=== PATIENT | male | born 1985 | race Caucasian/White ===

== ENCOUNTER → 2019-07-11 09:57 | Outpatient (CLI) | payer BC, SELFPAY ==
[2019-07-12 13:11] LABS: COVID19 Sendout NOT DETECTED (Not Detect)
== END ==
PROVIDERS: Visit Provider Registered Nurse
DX: Z11.59 Encounter for screening for other viral diseases (principal)
CPT/HCPCS: 87635

== ENCOUNTER → 2019-09-19 11:08 | Outpatient (CLI) | payer BC, SELFPAY ==
[2019-09-20 07:57] LABS: COVID19 Sendout Not Detected (Not Detect)
== END ==
PROVIDERS: Visit Provider Physician Assistant
DX: Z11.59 Encounter for screening for other viral diseases (principal)
CPT/HCPCS: 87635

== ENCOUNTER 2020-07-04 09:00 | Outpatient (RCR) | payer OTHER, SELFPAY ==
--- NOTE | 2020-03-19 14:29 | PT.OIE ---
Current Diagnoses Pain in right knee (03/19/20) Stiffness of right knee, not elsewhere classified (03/19/20) Muscle weakness (generalized) (03/19/20) Other abnormalities of gait and mobility (03/19/20) Other tear of lateral meniscus, current injury, right knee, initial encounter (03/19/20) Sprain of anterior cruciate ligament of right knee, initial encounter (03/19/20) Visit Care Team Role Provider Type Chema Cash MD Primary Care Provider Physician Specialty: [facility] Address: [address] [place] [address], [id number] Email: [email or web address] Charli Gonzalez MD Attending Provider Non-Staff Referring Provider Specialty: Orthopedic Surgery Address: [address] [place] [address], [facility] Email: Physical Therapy Initial Evaluation PT-OP-A Visit Information Start: 03/19/20 13:53 Freq: Status: Active Protocol: Document 03/19/20 10:30 DCW (Rec: 03/19/20 14:07 DCW [id number]) Out-Patient Physical Therapy Visit Information Visit Information Visit Type Initial Evaluation Visit Start Time 10:30 Visit Stop Time 11:15 Total Visit Minutes 45 Visit Number 1 Number of GLASS 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 In the process, his left foot got caught in yaneli, resulting in him falling and landing on his right leg, which caused a right ACL and lateral meniscus tear. 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 Pt had surgical repair on 03/12/20 in [place], where he works , and the on 03/17/20, flew to [place], where he lives with his and four children. Post-op, pt has been performing ankle pumps, SLR, and glute/quad sets. Pt also is using bilateral axillary crutches and a brace, which is supposed to lock into extension during weight- bearing, although pt admits he is not 100% compliant with locking his brace. Pt notes his pain is overall well controlled, takes one pain pill in the AM, and then some edibles at night to help him sleep. Treatment Goals Patient/Caregiver Goals Pt's goals are to be brace- free in one month, regain quad function, and overall return to his normal functional level . PT-OP-C Subjective Start: 03/19/20 13:53 Freq: Status: Active Protocol: Document 03/19/20 10:30 DCW (Rec: 03/19/20 14:29 DC [id number]) OP-PT Subjective Patient Comments Patient Comments I'm thinking about ditching the crutches in the next day or two, I feel like they make me more likely to trip or get hung up on something. Patient Reported Progress Improving Patient Questionnaires Lower Extremity Functional Scale LEFS Score 16.25% OP-PT Pain Assessment Pain Assessment Grid Paper Pain Assessment Grid Completed Yes Location Left Knee Intensity 7 Scale Used Numeric (0 - 10) PT-OP-J Posture/Palpation/Skin Start: 03/19/20 14:08 Freq: Status: Active Protocol: Document 03/19/20 10:30 DCW (Rec: 03/19/20 14:29 DCW [id number]) Skin Assessment Circumference Measurement 3 Location 10 cm inferior to right knee joint line Measurement (Centimeters) 38.5 Comments 10 cm inferior to left knee joint line: 37.8 cm 2 Location 10 cm superior to right knee joint line Measurement (Centimeters) 44.0 Comments 10 cm superior to left knee joint line: 42.8 cm 1 Location Right knee joint line Measurement (Centimeters) 40.8 Comments Left knee joint line: 35.0 cm PT-OP-K Range of Motion Start: 03/19/20 13:53 Freq: Status: Active Protocol: Document 03/19/20 10:30 DCW (Rec: 03/19/20 14:29 DCW [id number]) Knee Goniometric Range of Motion Knee Right Patient Position Supine Flexion Active (degrees) 92 Extension Active (degrees) 0 Comments Extension lag during SLR: 8? PT-OP-M Strength Start: 03/19/20 13:53 Freq: Status: Active Protocol: Document 03/19/20 10:30 DCW (Rec: 03/19/20 14:29 DCW [id number]) Knee Strength Knee Manual Muscle Testing Right Flexion (S2) 3 Fair Extension (L3) 3 Fair Comments Pt able to lift leg againt gravity both with SLR and performing HS curl in standing , knee flexion and extension at least 3/5 PT-OP-T Assessment and Plan Start: 03/19/20 13:53 Freq: Status: Active Protocol: Document 03/19/20 10:30 DCW (Rec: 03/19/20 14:29 DCW [id number]) Physical Therapy Assessment Rehab Potential Rehabilitation Potential Excellent Evaluation Complexity Number of Personal Factors/Comorbidities 1-2 Number of Body Systems Impaired 1-2 Clinical Presentation at Evaluation Stable Impairments Impairments Activity Tolerance,Balance, Edema,Functional Activities, Functional Mobility,Gait,Pain, ROM,Soft Tissue Mobility, Strength Goals Five Impairment Pt demonstrating post-op R quad and hamstring strength of 3/5 Correction Goal (LTG) Pt to demonstrate 4/5 quad and hamstring strength in order to 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 LTG Duration 06/16/20 Four Impairment Pt right knee ROM limited to 0 -90? Correction Goal (LTG) Pt to demonstrate right knee ROM 0-130? pain-free in order to return to prior level of function LTG Duration 05/17/20 Three Impairment Pt amb step-through gait wearing locked ext brace /c B axillary crutches Correction Goal (LTG) Pt to ambulate unassisted with no brace using a step-through gait pattern with no antalgia LTG Duration 05/17/20 Two Impairment Pt presents with circumfrential measurements L> R at joint line by 5.8 cm Correction Goal (LTG) Circumfrential measurements at knee joint line L=R LTG Duration 05/17/20 One Impairment Pt does not have an appropriate home exercise program Short Term Goal (STG) Pt to be independent and compliant with an appropriate HEP STG Duration 04/16/20 Assessment Summary Assessment Pt presents to skilled therapy one week s/p right ACL reconstruction using patella graft and minor lateral meniscus repair. Pt has so far been doing very well, ambulates with bilateral axillary crutches and his brace locked in extension most of the time, has been active with his current HEP. Pt current ROM is 0-90?, strength is at least 3/5, pt able to move against gravity. 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 Pt has been through ACL repair recovery approx 4 years ago, and demonstrates he is knowledgeable with rehab process and expectations. Pain -levels well controlled at this time. Pt should benefit from skilled therapy, beginning with focus on gentle strengthening, increasing ROM , gait training, and edema control. Physical Therapy Plan Frequency and Duration Frequency of Treatment 2x/Week Duration of Treatment 10 weeks Plan of Care Start Date 03/19/20 Plan of Care End Date 05/28/20 Therapeutic Interventions Therapeutic Interventions Balance Training,Gait Training ,Home Exercise Program,Joint Mobilizations,Manual Therapy, Neuromuscular Re-education, Patient/Caregiver Education, Self-Care/Home Management,Soft Tissue Mobilization, Therapeutic Activities, Therapeutic Exercises Modalities Cold Pack/Ice Massage,Electric Stimulation,Hot Packs, Ultrasound Next Visit Focus/Plan Next Note Type Treatment Note Next Visit Plan ROM, edema control, gentle strengthening, gait training
--- NOTE | 2020-03-19 14:29 | PT.OPPOC ---
Physical, Occupational & Speech Therapy At [facility] Current Diagnoses Pain in right knee (03/19/20) Stiffness of right knee, not elsewhere classified (03/19/20) Muscle weakness (generalized) (03/19/20) Other abnormalities of gait and mobility (03/19/20) Other tear of lateral meniscus, current injury, right knee, initial encounter (03/19/20) Sprain of anterior cruciate ligament of right knee, initial encounter (03/19/20) Visit Care Team Role Provider Type Chema Cash MD Primary Care Provider Physician Specialty: [facility] Address: [address] [place] [address] [place], [address] Email: [email or web address] Charli Gonzalez MD Attending Provider Non-Staff Referring Provider Specialty: Orthopedic Surgery Address: [address] [place] [address], [facility] Email: Plan Of Care PT-OP-T Assessment and Plan Start: 03/19/20 13:53 Freq: Status: Active Protocol: Document 03/19/20 10:30 DCW (Rec: 03/19/20 14:29 DCW [id number]) Physical Therapy Assessment Rehab Potential Rehabilitation Potential Excellent Evaluation Complexity Number of Personal Factors/Comorbidities 1-2 Number of Body Systems Impaired 1-2 Clinical Presentation at Evaluation Stable Impairments Impairments Activity Tolerance,Balance, Edema,Functional Activities, Functional Mobility,Gait,Pain, ROM,Soft Tissue Mobility, Strength Goals Five Impairment Pt demonstrating post-op R quad and hamstring strength of 3/5 [facility] Goal (LTG) Pt to demonstrate 4/5 quad and hamstring strength in order to 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 LTG Duration 06/16/20 Four Impairment Pt right knee ROM limited to 0 -90? [facility] Goal (LTG) Pt to demonstrate right knee ROM 0-130? pain-free in order to return to prior level of function LTG Duration 05/17/20 Three Impairment Pt amb step-through gait wearing locked ext brace /c B axillary crutches [facility] Goal (LTG) Pt to ambulate unassisted with no brace using a step-through gait pattern with no antalgia LTG Duration 05/17/20 Two Impairment Pt presents with circumfrential measurements L> R at joint line by 5.8 cm [facility] Goal (LTG) Circumfrential measurements at knee joint line L=R LTG Duration 05/17/20 One Impairment Pt does not have an appropriate home exercise program Short Term Goal (STG) Pt to be independent and compliant with an appropriate HEP STG Duration 04/16/20 Assessment Summary Assessment Pt presents to skilled therapy one week s/p right ACL reconstruction using patella graft and minor lateral meniscus repair. Pt has so far been doing very well, ambulates with bilateral axillary crutches and his brace locked in extension most of the time, has been active with his current HEP. Pt current ROM is 0-90?, strength is at least 3/5, pt able to move against gravity. 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 Pt has been through ACL repair recovery approx 4 years ago, and demonstrates he is knowledgeable with rehab process and expectations. Pain -levels well controlled at this time. Pt should benefit from skilled therapy, beginning with focus on gentle strengthening, increasing ROM , gait training, and edema control. Physical Therapy Plan Frequency and Duration Frequency of Treatment 2x/Week Duration of Treatment 10 weeks Plan of Care Start Date 03/19/20 Plan of Care End Date 05/28/20 Therapeutic Interventions Therapeutic Interventions Balance Training,Gait Training ,Home Exercise Program,Joint Mobilizations,Manual Therapy, Neuromuscular Re-education, Patient/Caregiver Education, Self-Care/Home Management,Soft Tissue Mobilization, Therapeutic Activities, Therapeutic Exercises Modalities Cold Pack/Ice Massage,Electric Stimulation,Hot Packs, Ultrasound Next Visit Focus/Plan Next Note Type Treatment Note Next Visit Plan ROM, edema control, gentle strengthening, gait training Plan of Care Dates Plan of Care Start Date 03/19/20 Plan of Care End Date 05/28/20 Electronically Signed by: Flakito Colon, PT 03/19/20 2086 Please Sign and Return: I have reviewed this Plan of Care and certify that the skilled therapy services above are required to meet the patient?s needs. Physician Signature Date Printed Name and Credentials Clinical Instructor Signature Printed Name and Credentials
--- NOTE | 2020-03-21 10:32 | PT.OTN ---
Current Diagnoses Pain in right knee (03/21/20) Stiffness of right knee, not elsewhere classified (03/21/20) Muscle weakness (generalized) (03/21/20) Other abnormalities of gait and mobility (03/21/20) Other tear of lateral meniscus, current injury, right knee, initial encounter (03/21/20) Sprain of anterior cruciate ligament of right knee, initial encounter (03/21/20) Physical Therapy Treatment Note PT-OP-A Visit Information Start: 03/19/20 13:53 Freq: Status: Active Protocol: Document 03/21/20 09:50 DCW (Rec: 03/21/20 10:32 DCW [id number]) Out-Patient Physical Therapy Visit Information Visit Information Visit Type Treatment Note Visit Start Time 09:50 Visit Stop Time 10:30 Total Visit Minutes 40 Visit Number 2 Number of PARK WORKER Visits 0 Evaluation Information Evaluation Date 03/19/20 PT-OP-B Current Condition Start: 03/19/20 13:53 Freq: Status: Active Protocol: Document 03/19/20 10:30 DCW (Rec: 03/19/20 14:07 DCW [id number]) Current Condition History of Current Condition Onset Date 03/12/20 Current Complaints Knee pain, stiffness, weakness s/p R ACL, lateral meniscus repair History of Current Condition Pt is a 34 year old male presenting one week s/p right ACL reconstruction (patella graft) and meniscus repair. 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 In the process, his left foot got caught in yaneli, resulting in him falling and landing on his right leg, which caused a right ACL and lateral meniscus tear. 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 Pt had surgical repair on 03/12/20 in [place], where he works , and the on 03/17/20, flew to [place], where he lives with his and four children. Post-op, pt has been performing ankle pumps, SLR, and glute/quad sets. Pt also is using bilateral axillary crutches and a brace, which is supposed to lock into extension during weight- bearing, although pt admits he is not 100% compliant with locking his brace. Pt notes his pain is overall well controlled, takes one pain pill in the AM, and then some edibles at night to help him sleep. Treatment Goals Patient/Caregiver Goals Pt's goals are to be brace- free in one month, regain quad function, and overall return to his normal functional level . PT-OP-C Subjective Start: 03/19/20 13:53 Freq: Status: Active Protocol: Document 03/21/20 09:50 DCW (Rec: 03/21/20 10:32 DCW [id number]) OP-PT Subjective Patient Comments Patient Comments I've just really overdone it. I've tried to really hit the ground running, try to keep up with my kids, and it's just really painful. I'm having a lot of pain back in my hamstring. I used to be able to get it straight, but I don' t have that anymore. PT-OP-J Posture/Palpation/Skin Start: 03/19/20 14:08 Freq: Status: Active Protocol: Document 03/19/20 10:30 DCW (Rec: 03/19/20 14:29 DCW [id number]) Skin Assessment Circumference Measurement 3 Location 10 cm inferior to right knee joint line Measurement (Centimeters) 38.5 Comments 10 cm inferior to left knee joint line: 37.8 cm 2 Location 10 cm superior to right knee joint line Measurement (Centimeters) 44.0 Comments 10 cm superior to left knee joint line: 42.8 cm 1 Location Right knee joint line Measurement (Centimeters) 40.8 Comments Left knee joint line: 35.0 cm PT-OP-K Range of Motion Start: 03/19/20 13:53 Freq: Status: Active Protocol: Document 03/19/20 10:30 DCW (Rec: 03/19/20 14:29 DCW [id number]) Knee Goniometric Range of Motion Knee Right Patient Position Supine Flexion Active (degrees) 92 Extension Active (degrees) 0 Comments Extension lag during SLR: 8? PT-OP-M Strength Start: 03/19/20 13:53 Freq: Status: Active Protocol: Document 03/19/20 10:30 DCW (Rec: 03/19/20 14:29 DCW [id number]) Knee Strength Knee Manual Muscle Testing Right Flexion (S2) 3 Fair Extension (L3) 3 Fair Comments Pt able to lift leg againt gravity both with SLR and performing HS curl in standing , knee flexion and extension at least 3/5 PT-OP-Q Treatments Start: 03/19/20 13:53 Freq: Status: Active Protocol: Document 03/21/20 09:50 DCW (Rec: 03/21/20 10:32 DCW [id number]) Cardio Equipment Recumbent Bicycle Duration (Minutes) 6 Resistance 0 Other no full rotations, just ROM Gym Equipment Therapeutic Ball 1 Exercise Details Hip/knee flexion Ball Size/Color Blue - 45 cm Body Position Supine Therapeutic Exercises Supine Exercises 5 Supine Exercise Name Hip Abduction - Windshield wipers Side right 4 Supine Exercise Name Heelslides Side right 3 Supine Exercise Name SAQ Side right 2 Supine Exercise Name Piriformis stretch Side right Comments Pressure on thigh to eliminate torsional force on knee 1 Supine Exercise Name Hamstring stretch Side right Standing Exercises 1 Standing Exercise Name TKE Side right Resistance Lv 2 Equipment Used T-band Manual Therapy Treatment Soft Tissue Mobilization 3 Body Location Proximal Gastroc Mobilization Type Strumming,Sustained Pressure Intensity/Depth Superficial Body Position Hooklying 2 Body Location Piriformis Mobilization Type Strumming,Sustained Pressure Intensity/Depth Moderate Body Position Supine 1 Body Location ITB Mobilization Type Strumming,Sustained Pressure Intensity/Depth Moderate Body Position Supine PT-OP-T Assessment and Plan Start: 03/19/20 13:53 Freq: Status: Active Protocol: Document 03/21/20 09:50 DCW (Rec: 03/21/20 10:32 DCW [id number]) Physical Therapy Assessment Impairments Impairments Activity Tolerance,Balance, Edema,Functional Activities, Functional Mobility,Gait,Pain, ROM,Soft Tissue Mobility, Strength Goals Five Impairment Pt demonstrating post-op R quad and hamstring strength of 3/5 Valuation Consultant Goal (LTG) Pt to demonstrate 4/5 quad and hamstring strength in order to 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 LTG Duration 06/16/20 Four Impairment Pt right knee ROM limited to 0 -90? Residential Goal (LTG) Pt to demonstrate right knee ROM 0-130? pain-free in order to return to prior level of function LTG Duration 05/17/20 Three Impairment Pt amb step-through gait wearing locked ext brace /c B axillary crutches Valuation Consultant Goal (LTG) Pt to ambulate unassisted with no brace using a step-through gait pattern with no antalgia LTG Duration 05/17/20 Two Impairment Pt presents with circumfrential measurements L> R at joint line by 5.8 cm Residential Goal (LTG) Circumfrential measurements at knee joint line L=R LTG Duration 05/17/20 One Impairment Pt does not have an appropriate home exercise program Short Term Goal (STG) Pt to be independent and compliant with an appropriate HEP STG Duration 04/16/20 Assessment Summary Assessment Focused on fairly easy, straight-forward exercises and STM today due to pts significant increase in pain and discomfort since his eval two days ago. Pt felt much better following today's session, knee extension returned to 0 degrees. Physical Therapy Plan Frequency and Duration Frequency of Treatment 2x/Week Duration of Treatment 10 weeks Plan of Care Start Date 03/19/20 Plan of Care End Date 05/28/20 Therapeutic Interventions Therapeutic Interventions Balance Training,Gait Training ,Home Exercise Program,Joint Mobilizations,Manual Therapy, Neuromuscular Re-education, Patient/Caregiver Education, Self-Care/Home Management,Soft Tissue Mobilization, Therapeutic Activities, Therapeutic Exercises Modalities Cold Pack/Ice Massage,Electric Stimulation,Hot Packs, Ultrasound Next Visit Focus/Plan Next Note Type Treatment Note Next Visit Plan ROM, edema control, gentle strengthening, gait training
--- NOTE | 2020-03-26 11:10 | PT.OTN ---
Current Diagnoses Pain in right knee (03/26/20) Stiffness of right knee, not elsewhere classified (03/26/20) Muscle weakness (generalized) (03/26/20) Other abnormalities of gait and mobility (03/26/20) Other tear of lateral meniscus, current injury, right knee, initial encounter (03/26/20) Sprain of anterior cruciate ligament of right knee, initial encounter (03/26/20) Physical Therapy Treatment Note PT-OP-A Visit Information Start: 03/19/20 13:53 Freq: Status: Active Protocol: Document 03/26/20 10:30 DCW (Rec: 03/26/20 11:10 DCW [id number]) Out-Patient Physical Therapy Visit Information Visit Information Visit Type Treatment Note Visit Start Time 10:30 Visit Stop Time 11:10 Total Visit Minutes 40 Visit Number 3 Number of CROWN BLOCKER Visits 0 Evaluation Information Evaluation Date 03/19/20 PT-OP-B Current Condition Start: 03/19/20 13:53 Freq: Status: Active Protocol: Document 03/19/20 10:30 DCW (Rec: 03/19/20 14:07 DCW [id number]) Current Condition History of Current Condition Onset Date 03/12/20 Current Complaints Knee pain, stiffness, weakness s/p R ACL, lateral meniscus repair History of Current Condition Pt is a 34 year old male presenting one week s/p right ACL reconstruction (patella graft) and meniscus repair. 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 In the process, his left foot got caught in yaneli, resulting in him falling and landing on his right leg, which caused a right ACL and lateral meniscus tear. 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 Pt had surgical repair on 03/12/20 in [place], where he works , and the on 03/17/20, flew to [place], where he lives with his and four children. Post-op, pt has been performing ankle pumps, SLR, and glute/quad sets. Pt also is using bilateral axillary crutches and a brace, which is supposed to lock into extension during weight- bearing, although pt admits he is not 100% compliant with locking his brace. Pt notes his pain is overall well controlled, takes one pain pill in the AM, and then some edibles at night to help him sleep. Treatment Goals Patient/Caregiver Goals Pt's goals are to be brace- free in one month, regain quad function, and overall return to his normal functional level . PT-OP-C Subjective Start: 03/19/20 13:53 Freq: Status: Active Protocol: Document 03/26/20 10:30 DCW (Rec: 03/26/20 11:10 DCW [id number]) OP-PT Subjective Patient Comments Patient Comments Pt feeling much better today, notes he had a good weekend, has been performing his HEP regularly, and has been doing much better with pain management. PT-OP-J Posture/Palpation/Skin Start: 03/19/20 14:08 Freq: Status: Active Protocol: Document 03/19/20 10:30 DCW (Rec: 03/19/20 14:29 DCW [id number]) Skin Assessment Circumference Measurement 3 Location 10 cm inferior to right knee joint line Measurement (Centimeters) 38.5 Comments 10 cm inferior to left knee joint line: 37.8 cm 2 Location 10 cm superior to right knee joint line Measurement (Centimeters) 44.0 Comments 10 cm superior to left knee joint line: 42.8 cm 1 Location Right knee joint line Measurement (Centimeters) 40.8 Comments Left knee joint line: 35.0 cm PT-OP-K Range of Motion Start: 03/19/20 13:53 Freq: Status: Active Protocol: Document 03/19/20 10:30 DCW (Rec: 03/19/20 14:29 DCW [id number]) Knee Goniometric Range of Motion Knee Right Patient Position Supine Flexion Active (degrees) 92 Extension Active (degrees) 0 Comments Extension lag during SLR: 8? PT-OP-M Strength Start: 03/19/20 13:53 Freq: Status: Active Protocol: Document 03/19/20 10:30 DCW (Rec: 03/19/20 14:29 DCW [id number]) Knee Strength Knee Manual Muscle Testing Right Flexion (S2) 3 Fair Extension (L3) 3 Fair Comments Pt able to lift leg againt gravity both with SLR and performing HS curl in standing , knee flexion and extension at least 3/5 PT-OP-Q Treatments Start: 03/19/20 13:53 Freq: Status: Active Protocol: Document 03/26/20 10:30 DCW (Rec: 03/26/20 11:10 DCW [id number]) Cardio Equipment Recumbent Bicycle Duration (Minutes) 6 Resistance 3 Seat Position 6 Gym Equipment Shuttle Recovery Unilateral Squats Resistance 25# Shuttle Recovery Platform Stable Bilateral Squats Resistance 50# Shuttle Recovery Platform Stable Therapeutic Ball 1 Exercise Details Hip/knee flexion Ball Size/Color Blue - 45 cm Body Position Supine Therapeutic Exercises Standing Exercises 1 Standing Exercise Name TKE Side right Resistance Lv 3 Equipment Used T-band Manual Therapy Treatment Soft Tissue Mobilization 3 Body Location Proximal Gastroc Mobilization Type Strumming,Sustained Pressure Intensity/Depth Superficial Body Position Hooklying 2 Body Location Piriformis Mobilization Type Strumming,Sustained Pressure Intensity/Depth Moderate Body Position Supine 1 Body Location ITB Mobilization Type Strumming,Sustained Pressure Intensity/Depth Moderate Body Position Supine Orthotic/Prosthetic Management and Training Treatment Details of Training Resizing/adjustment of knee brace. 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 LTG Duration 06/16/20 Four Impairment Pt right knee ROM limited to 0 -90? Tool Shaper Set Up Operator Goal (LTG) Pt to demonstrate right knee ROM 0-130? pain-free in order to return to prior level of function LTG Duration 05/17/20 Three Impairment Pt amb step-through gait wearing locked ext brace /c B axillary crutches Shelter Goal (LTG) Pt to ambulate unassisted with no brace using a step-through gait pattern with no antalgia LTG Duration 05/17/20 Two Impairment Pt presents with circumfrential measurements L> R at joint line by 5.8 cm Shelter Goal (LTG) Circumfrential measurements at knee joint line L=R LTG Duration 05/17/20 One Impairment Pt does not have an appropriate home exercise program Short Term Goal (STG) Pt to be independent and compliant with an appropriate HEP STG Duration 04/16/20 Assessment Summary Assessment Pt doing much better today, feeling more confident with walking, minimal to no pain with activity. Pt anxious to return to gym for upper body and core work outs. Worked to adjust brace today, pt noted it had been slipping backward. Physical Therapy Plan Frequency and Duration Frequency of Treatment 2x/Week Duration of Treatment 10 weeks Plan of Care Start Date 03/19/20 Plan of Care End Date 05/28/20 Therapeutic Interventions Therapeutic Interventions Balance Training,Gait Training ,Home Exercise Program,Joint Mobilizations,Manual Therapy, Neuromuscular Re-education, Patient/Caregiver Education, Self-Care/Home Management,Soft Tissue Mobilization, Therapeutic Activities, Therapeutic Exercises Modalities Cold Pack/Ice Massage,Electric Stimulation,Hot Packs, Ultrasound Next Visit Focus/Plan Next Note Type Treatment Note Next Visit Plan ROM, edema control, gentle strengthening, gait training
--- NOTE | 2020-03-28 11:24 | PT.OTN ---
Current Diagnoses Pain in right knee (03/28/20) Stiffness of right knee, not elsewhere classified (03/28/20) Muscle weakness (generalized) (03/28/20) Other abnormalities of gait and mobility (03/28/20) Other tear of lateral meniscus, current injury, right knee, initial encounter (03/28/20) Sprain of anterior cruciate ligament of right knee, initial encounter (03/28/20) Physical Therapy Treatment Note PT-OP-A Visit Information Start: 03/19/20 13:53 Freq: Status: Active Protocol: Document 03/28/20 10:40 DCW (Rec: 03/28/20 11:24 DCW [id number]) Out-Patient Physical Therapy Visit Information Visit Information Visit Type Treatment Note Visit Note 10 min late Visit Start Time 10:40 Visit Stop Time 11:20 Total Visit Minutes 40 Visit Number 4 Number of SATURATION EQUIPMENT OPERATOR Visits 0 Evaluation Information Evaluation Date 03/19/20 PT-OP-B Current Condition Start: 03/19/20 13:53 Freq: Status: Active Protocol: Document 03/19/20 10:30 DCW (Rec: 03/19/20 14:07 DCW [id number]) Current Condition History of Current Condition Onset Date 03/12/20 Current Complaints Knee pain, stiffness, weakness s/p R ACL, lateral meniscus repair History of Current Condition Pt is a 34 year old male presenting one week s/p right ACL reconstruction (patella graft) and meniscus repair. 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 In the process, his left foot got caught in yaneli, resulting in him falling and landing on his right leg, which caused a right ACL and lateral meniscus tear. 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 Pt had surgical repair on 03/12/20 in [place], where he works , and the on 03/17/20, flew to [place], where he lives with his and four children. Post-op, pt has been performing ankle pumps, SLR, and glute/quad sets. Pt also is using bilateral axillary crutches and a brace, which is supposed to lock into extension during weight- bearing, although pt admits he is not 100% compliant with locking his brace. Pt notes his pain is overall well controlled, takes one pain pill in the AM, and then some edibles at night to help him sleep. Treatment Goals Patient/Caregiver Goals Pt's goals are to be brace- free in one month, regain quad function, and overall return to his normal functional level . PT-OP-C Subjective Start: 03/19/20 13:53 Freq: Status: Active Protocol: Document 03/28/20 10:40 DCW (Rec: 03/28/20 11:24 DCW [id number]) OP-PT Subjective Patient Comments Patient Comments Pt reports he is feeling good overall. Got his stitches removed last night, feels that the only thing limiting my movement right now is still the swelling. PT-OP-J Posture/Palpation/Skin Start: 03/19/20 14:08 Freq: Status: Active Protocol: Document 03/19/20 10:30 DCW (Rec: 03/19/20 14:29 DCW [id number]) Skin Assessment Circumference Measurement 3 Location 10 cm inferior to right knee joint line Measurement (Centimeters) 38.5 Comments 10 cm inferior to left knee joint line: 37.8 cm 2 Location 10 cm superior to right knee joint line Measurement (Centimeters) 44.0 Comments 10 cm superior to left knee joint line: 42.8 cm 1 Location Right knee joint line Measurement (Centimeters) 40.8 Comments Left knee joint line: 35.0 cm PT-OP-K Range of Motion Start: 03/19/20 13:53 Freq: Status: Active Protocol: Document 03/19/20 10:30 DCW (Rec: 03/19/20 14:29 DCW [id number]) Knee Goniometric Range of Motion Knee Right Patient Position Supine Flexion Active (degrees) 92 Extension Active (degrees) 0 Comments Extension lag during SLR: 8? PT-OP-M Strength Start: 03/19/20 13:53 Freq: Status: Active Protocol: Document 03/19/20 10:30 DCW (Rec: 03/19/20 14:29 DCW [id number]) Knee Strength Knee Manual Muscle Testing Right Flexion (S2) 3 Fair Extension (L3) 3 Fair Comments Pt able to lift leg againt gravity both with SLR and performing HS curl in standing , knee flexion and extension at least 3/5 PT-OP-Q Treatments Start: 03/19/20 13:53 Freq: Status: Active Protocol: Document 03/28/20 10:40 DCW (Rec: 03/28/20 11:24 DCW [id number]) Cardio Equipment Recumbent Bicycle Duration (Minutes) 6 Resistance 3 Seat Position 6 Gym Equipment Shuttle Recovery Unilateral Squats Resistance 37# Shuttle Recovery Platform Stable Bilateral Squats Resistance 75# Shuttle Recovery Platform Stable Therapeutic Exercises Standing Exercises 2 Standing Exercise Name Step-ups Side right Equipment Used 4 step 1 Standing Exercise Name TKE Side right Resistance Lv 3 Equipment Used T-band Other Exercises 1 Other Exercise Name Resisted side-stepping Resistance Green Manual Therapy Treatment Soft Tissue Mobilization 3 Body Location Proximal Gastroc Mobilization Type Strumming,Sustained Pressure Intensity/Depth Superficial Body Position Hooklying 2 Body Location Piriformis Mobilization Type Strumming,Sustained Pressure Intensity/Depth Moderate Body Position Supine 1 Body Location ITB Mobilization Type Strumming,Sustained Pressure Intensity/Depth Moderate Body Position Supine PT-OP-T Assessment and Plan Start: 03/19/20 13:53 Freq: Status: Active Protocol: Document 03/28/20 10:40 DCW (Rec: 03/28/20 11:24 DCW [id number]) Physical Therapy Assessment Impairments Impairments Activity Tolerance,Balance, Edema,Functional Activities, Functional Mobility,Gait,Pain, ROM,Soft Tissue Mobility, Strength Goals Five Impairment Pt demonstrating post-op R quad and hamstring strength of 3/5 Convict Guard Goal (LTG) Pt to demonstrate 4/5 quad and hamstring strength in order 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 LTG Duration 06/16/20 Four Impairment Pt right knee ROM limited to 0 -90? Alf Goal (LTG) Pt to demonstrate right knee ROM 0-130? pain-free in order to return to prior level of function LTG Duration 05/17/20 Three Impairment Pt amb step-through gait wearing locked ext brace /c B axillary crutches Convict Guard Goal (LTG) Pt to ambulate unassisted with no brace using a step-through gait pattern with no antalgia LTG Duration 05/17/20 Two Impairment Pt presents with circumfrential measurements L> R at joint line by 5.8 cm Alf Goal (LTG) Circumfrential measurements at knee joint line L=R LTG Duration 05/17/20 One Impairment Pt does not have an appropriate home exercise program Short Term Goal (STG) Pt to be independent and compliant with an appropriate HEP STG Duration 04/16/20 Assessment Summary Assessment Pt continues to do very well 16 days post-op, has been fairly active at home with no pain of difficulty, still wearing brace for most weight- bearing activities, but admits he takes it off to move around his house. Physical Therapy Plan Frequency and Duration Frequency of Treatment 2x/Week Duration of Treatment 10 weeks Plan of Care Start Date 03/19/20 Plan of Care End Date 05/28/20 Therapeutic Interventions Therapeutic Interventions Balance Training,Gait Training ,Home Exercise Program,Joint Mobilizations,Manual Therapy, Neuromuscular Re-education, Patient/Caregiver Education, Self-Care/Home Management,Soft Tissue Mobilization, Therapeutic Activities, Therapeutic Exercises Modalities Cold Pack/Ice Massage,Electric Stimulation,Hot Packs, Ultrasound Next Visit Focus/Plan Next Note Type Treatment Note Next Visit Plan ROM, edema control, gentle strengthening, gait training
--- NOTE | 2020-04-02 11:20 | PT.OTN ---
Current Diagnoses Pain in right knee (04/02/20) Stiffness of right knee, not elsewhere classified (04/02/20) Muscle weakness (generalized) (04/02/20) Other abnormalities of gait and mobility (04/02/20) Other tear of lateral meniscus, current injury, right knee, initial encounter (04/02/20) Sprain of anterior cruciate ligament of right knee, initial encounter (04/02/20) Physical Therapy Treatment Note PT-OP-A Visit Information Start: 03/19/20 13:53 Freq: Status: Active Protocol: Document 04/02/20 10:32 DCW (Rec: 04/02/20 11:20 DCW [id number]) Out-Patient Physical Therapy Visit Information Visit Information Visit Type Treatment Note Visit Start Time 10:32 Visit Stop Time 11:15 Total Visit Minutes 43 Visit Number 5 Number of ENVIRONMENTAL SAMPLER Visits 0 Evaluation Information Evaluation Date 03/19/20 PT-OP-B Current Condition Start: 03/19/20 13:53 Freq: Status: Active Protocol: Document 03/19/20 10:30 DCW (Rec: 03/19/20 14:07 DCW [id number]) Current Condition History of Current Condition Onset Date 03/12/20 Current Complaints Knee pain, stiffness, weakness s/p R ACL, lateral meniscus repair History of Current Condition Pt is a 34 year old male presenting one week s/p right ACL reconstruction (patella graft) and meniscus repair. 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 In the process, his left foot got caught in yaneli, resulting in him falling and landing on his right leg, which caused a right ACL and lateral meniscus tear. 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 Pt had surgical repair on 03/12/20 in [place], where he works , and the on 03/17/20, flew to [place], where he lives with his and four children. Post-op, pt has been performing ankle pumps, SLR, and glute/quad sets. Pt also is using bilateral axillary crutches and a brace, which is supposed to lock into extension during weight- bearing, although pt admits he is not 100% compliant with locking his brace. Pt notes his pain is overall well controlled, takes one pain pill in the AM, and then some edibles at night to help him sleep. Treatment Goals Patient/Caregiver Goals Pt's goals are to be brace- free in one month, regain quad function, and overall return to his normal functional level . PT-OP-C Subjective Start: 03/19/20 13:53 Freq: Status: Active Protocol: Document 04/02/20 10:32 DCW (Rec: 04/02/20 11:20 DCW [id number]) OP-PT Subjective Patient Comments Patient Comments Pt reports he began having calf pain over the weekend, but then noticed he was walking a lot on his toes, corrected this, and felt much better. Notes that compression typically helps it feel so much better. PT-OP-J Posture/Palpation/Skin Start: 03/19/20 14:08 Freq: Status: Active Protocol: Document 03/19/20 10:30 DCW (Rec: 03/19/20 14:29 DCW [id number]) Skin Assessment Circumference Measurement 3 Location 10 cm inferior to right knee joint line Measurement (Centimeters) 38.5 Comments 10 cm inferior to left knee joint line: 37.8 cm 2 Location 10 cm superior to right knee joint line Measurement (Centimeters) 44.0 Comments 10 cm superior to left knee joint line: 42.8 cm 1 Location Right knee joint line Measurement (Centimeters) 40.8 Comments Left knee joint line: 35.0 cm PT-OP-K Range of Motion Start: 03/19/20 13:53 Freq: Status: Active Protocol: Document 03/19/20 10:30 DCW (Rec: 03/19/20 14:29 DCW [id number]) Knee Goniometric Range of Motion Knee Right Patient Position Supine Flexion Active (degrees) 92 Extension Active (degrees) 0 Comments Extension lag during SLR: 8? PT-OP-M Strength Start: 03/19/20 13:53 Freq: Status: Active Protocol: Document 03/19/20 10:30 DCW (Rec: 03/19/20 14:29 DCW [id number]) Knee Strength Knee Manual Muscle Testing Right Flexion (S2) 3 Fair Extension (L3) 3 Fair Comments Pt able to lift leg againt gravity both with SLR and performing HS curl in standing , knee flexion and extension at least 3/5 PT-OP-Q Treatments Start: 03/19/20 13:53 Freq: Status: Active Protocol: Document 04/02/20 10:32 DCW (Rec: 04/02/20 11:20 DCW [id number]) Cardio Equipment Recumbent Bicycle Duration (Minutes) 6 Resistance 5 Seat Position 6 Gym Equipment Shuttle Recovery Unilateral Squats Resistance 37# Shuttle Recovery Platform Stable Bilateral Squats Resistance 75# Shuttle Recovery Platform Stable Therapeutic Exercises Supine Exercises 6 Supine Exercise Name Hamstring stretch Standing Exercises 3 Standing Exercise Name Knee flexion step stretch 2 Standing Exercise Name Step-ups Side right Equipment Used 4 step Other Exercises 1 Other Exercise Name Resisted side-stepping, Forward, Backward Resistance Blue Gait Training Gait Activity 1 Description Focus on push-off on right foot Neuro Re-Education Treatment Balance Activities 1 Details SLS Surface Dominique foam PT-OP-T Assessment and Plan Start: 03/19/20 13:53 Freq: Status: Active Protocol: Document 04/02/20 10:32 DCW (Rec: 04/02/20 11:20 DCW [id number]) Physical Therapy Assessment Impairments Impairments Activity Tolerance,Balance, Edema,Functional Activities, Functional Mobility,Gait,Pain, ROM,Soft Tissue Mobility, Strength Goals Five Impairment Pt demonstrating post-op R quad and hamstring strength of 3/5 Mcfp Goal (LTG) Pt to demonstrate 4/5 quad and hamstring strength in order to 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 LTG Duration 06/16/20 Four Impairment Pt right knee ROM limited to 0 -90? Water Pollution Control Inspector Goal (LTG) Pt to demonstrate right knee ROM 0-130? pain-free in order to return to prior level of function LTG Duration 05/17/20 Three Impairment Pt amb step-through gait wearing locked ext brace /c B axillary crutches Water Pollution Control Inspector Goal (LTG) Pt to ambulate unassisted with no brace using a step-through gait pattern with no antalgia LTG Duration 05/17/20 Two Impairment Pt presents with circumfrential measurements L> R at joint line by 5.8 cm Water Pollution Control Inspector Goal (LTG) Circumfrential measurements at knee joint line L=R LTG Duration 05/17/20 One Impairment Pt does not have an appropriate home exercise program Short Term Goal (STG) Pt to be independent and compliant with an appropriate HEP STG Duration 04/16/20 Assessment Summary Assessment Pt improving in all areas, gait looking much better, pt admits he is never wearing his brace anymore. No antalgia with gait, mild deficiency with right foot push-off, pt was able to correct with minimal verbal ues. Physical Therapy Plan Frequency and Duration Frequency of Treatment 2x/Week Duration of Treatment 10 weeks Plan of Care Start Date 03/19/20 Plan of Care End Date 05/28/20 Therapeutic Interventions Therapeutic Interventions Balance Training,Gait Training ,Home Exercise Program,Joint Mobilizations,Manual Therapy, Neuromuscular Re-education, Patient/Caregiver Education, Self-Care/Home Management,Soft Tissue Mobilization, Therapeutic Activities, Therapeutic Exercises Modalities Cold Pack/Ice Massage,Electric Stimulation,Hot Packs, Ultrasound Next Visit Focus/Plan Next Note Type Treatment Note Next Visit Plan ROM, edema control, gentle strengthening, gait training
--- NOTE | 2020-04-04 11:16 | PT.OTN ---
Current Diagnoses Pain in right knee (04/04/20) Stiffness of right knee, not elsewhere classified (04/04/20) Muscle weakness (generalized) (04/04/20) Other abnormalities of gait and mobility (04/04/20) Other tear of lateral meniscus, current injury, right knee, initial encounter (04/04/20) Sprain of anterior cruciate ligament of right knee, initial encounter (04/04/20) Physical Therapy Treatment Note PT-OP-A Visit Information Start: 03/19/20 13:53 Freq: Status: Active Protocol: Document 04/04/20 10:32 DCW (Rec: 04/04/20 11:16 DCW [id number]) Out-Patient Physical Therapy Visit Information Visit Information Visit Type Treatment Note Visit Start Time 10:32 Visit Stop Time 11:15 Total Visit Minutes 43 Visit Number 6 Number of SENIOR STRATEGY MANAGER Visits 0 Evaluation Information Evaluation Date 03/19/20 PT-OP-B Current Condition Start: 03/19/20 13:53 Freq: Status: Active Protocol: Document 03/19/20 10:30 DCW (Rec: 03/19/20 14:07 DCW [id number]) Current Condition History of Current Condition Onset Date 03/12/20 Current Complaints Knee pain, stiffness, weakness s/p R ACL, lateral meniscus repair History of Current Condition Pt is a 34 year old male presenting one week s/p right ACL reconstruction (patella graft) and meniscus repair. 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 In the process, his left foot got caught in yaneli, resulting in him falling and landing on his right leg, which caused a right ACL and lateral meniscus tear. 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 Pt had surgical repair on 03/12/20 in [place], where he works , and the on 03/17/20, flew to [place], where he lives with his and four children. Post-op, pt has been performing ankle pumps, SLR, and glute/quad sets. Pt also is using bilateral axillary crutches and a brace, which is supposed to lock into extension during weight- bearing, although pt admits he is not 100% compliant with locking his brace. Pt notes his pain is overall well controlled, takes one pain pill in the AM, and then some edibles at night to help him sleep. Treatment Goals Patient/Caregiver Goals Pt's goals are to be brace- free in one month, regain quad function, and overall return to his normal functional level . PT-OP-C Subjective Start: 03/19/20 13:53 Freq: Status: Active Protocol: Document 04/04/20 10:32 DCW (Rec: 04/04/20 11:16 DCW [id number]) OP-PT Subjective Patient Comments Patient Comments My only complaint is my IT band is still pretty tight. I' ve been trying to get in there and work on it. PT-OP-J Posture/Palpation/Skin Start: 03/19/20 14:08 Freq: Status: Active Protocol: Document 03/19/20 10:30 DCW (Rec: 03/19/20 14:29 DCW [id number]) Skin Assessment Circumference Measurement 3 Location 10 cm inferior to right knee joint line Measurement (Centimeters) 38.5 Comments 10 cm inferior to left knee joint line: 37.8 cm 2 Location 10 cm superior to right knee joint line Measurement (Centimeters) 44.0 Comments 10 cm superior to left knee joint line: 42.8 cm 1 Location Right knee joint line Measurement (Centimeters) 40.8 Comments Left knee joint line: 35.0 cm PT-OP-K Range of Motion Start: 03/19/20 13:53 Freq: Status: Active Protocol: Document 03/19/20 10:30 DCW (Rec: 03/19/20 14:29 DCW [id number]) Knee Goniometric Range of Motion Knee Right Patient Position Supine Flexion Active (degrees) 92 Extension Active (degrees) 0 Comments Extension lag during SLR: 8? PT-OP-M Strength Start: 03/19/20 13:53 Freq: Status: Active Protocol: Document 03/19/20 10:30 DCW (Rec: 03/19/20 14:29 DCW [id number]) Knee Strength Knee Manual Muscle Testing Right Flexion (S2) 3 Fair Extension (L3) 3 Fair Comments Pt able to lift leg againt gravity both with SLR and performing HS curl in standing , knee flexion and extension at least 3/5 PT-OP-Q Treatments Start: 03/19/20 13:53 Freq: Status: Active Protocol: Document 04/04/20 10:32 DCW (Rec: 04/04/20 11:16 DCW [id number]) Cardio Equipment Recumbent Bicycle Duration (Minutes) 6 Resistance 5 Seat Position 6 Gym Equipment Shuttle Recovery Unilateral Squats Resistance 50# Shuttle Recovery Platform Stable Bilateral Squats Resistance 100# Shuttle Recovery Platform Stable Therapeutic Exercises Supine Exercises 6 Supine Exercise Name Hamstring stretch 5 Supine Exercise Name ITB stretch 4 Supine Exercise Name Piriformis stretch Standing Exercises 3 Standing Exercise Name Knee flexion step stretch 2 Standing Exercise Name Step-ups Side right Equipment Used 6 step Other Exercises 1 Other Exercise Name Resisted side-stepping, Forward, Backward Resistance Blue Manual Therapy Treatment Soft Tissue Mobilization 3 Body Location Proximal Gastroc Mobilization Type Strumming,Sustained Pressure Intensity/Depth Superficial Body Position Hooklying 2 Body Location Piriformis Mobilization Type Strumming,Sustained Pressure Intensity/Depth Moderate Body Position Supine 1 Body Location ITB Mobilization Type Strumming,Sustained Pressure Intensity/Depth Moderate Body Position Supine Neuro Re-Education Treatment Balance Activities 2 Details DLS Surface BOSU Blue PT-OP-T Assessment and Plan Start: 03/19/20 13:53 Freq: Status: Active Protocol: Document 04/04/20 10:32 DCW (Rec: 04/04/20 11:16 DCW [id number]) Physical Therapy Assessment Impairments Impairments Activity Tolerance,Balance, Edema,Functional Activities, Functional Mobility,Gait,Pain, ROM,Soft Tissue Mobility, Strength Goals Five Impairment Pt demonstrating post-op R quad and hamstring strength of 3/5 Skilled Nursing Goal (LTG) Pt to demonstrate 4/5 quad and hamstring strength in order to 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 LTG Duration 06/16/20 Four Impairment Pt right knee ROM limited to 0 -90? Paperhanger Contractor Goal (LTG) Pt to demonstrate right knee ROM 0-130? pain-free in order to return to prior level of function LTG Duration 05/17/20 Three Impairment Pt amb step-through gait wearing locked ext brace /c B axillary crutches Paperhanger Contractor Goal (LTG) Pt to ambulate unassisted with no brace using a step-through gait pattern with no antalgia LTG Duration 05/17/20 Two Impairment Pt presents with circumfrential measurements L> R at joint line by 5.8 cm Paperhanger Contractor Goal (LTG) Circumfrential measurements at knee joint line L=R LTG Duration 05/17/20 One Impairment Pt does not have an appropriate home exercise program Short Term Goal (STG) Pt to be independent and compliant with an appropriate HEP STG Duration 04/16/20 Assessment Summary Assessment Pt continues to progress very well, much improving ROM, pt looking forward to increasing strengthening Physical Therapy Plan Frequency and Duration Frequency of Treatment 2x/Week Duration of Treatment 10 weeks Plan of Care Start Date 03/19/20 Plan of Care End Date 05/28/20 Therapeutic Interventions Therapeutic Interventions Balance Training,Gait Training ,Home Exercise Program,Joint Mobilizations,Manual Therapy, Neuromuscular Re-education, Patient/Caregiver Education, Self-Care/Home Management,Soft Tissue Mobilization, Therapeutic Activities, Therapeutic Exercises Modalities Cold Pack/Ice Massage,Electric Stimulation,Hot Packs, Ultrasound Next Visit Focus/Plan Next Note Type Treatment Note Next Visit Plan ROM, edema control, gentle strengthening, gait training
--- NOTE | 2020-04-09 11:15 | PT.OTN ---
Current Diagnoses Pain in right knee (04/09/20) Stiffness of right knee, not elsewhere classified (04/09/20) Muscle weakness (generalized) (04/09/20) Other abnormalities of gait and mobility (04/09/20) Other tear of lateral meniscus, current injury, right knee, initial encounter (04/09/20) Sprain of anterior cruciate ligament of right knee, initial encounter (04/09/20) Physical Therapy Treatment Note PT-OP-A Visit Information Start: 03/19/20 13:53 Freq: Status: Active Protocol: Document 04/09/20 10:30 DCW (Rec: 04/09/20 11:15 DCW [id number]) Out-Patient Physical Therapy Visit Information Visit Information Visit Type Treatment Note Visit Start Time 10:30 Visit Stop Time 11:15 Total Visit Minutes 45 Visit Number 7 Number of UMBRELLA TIPPER Visits 0 Evaluation Information Evaluation Date 03/19/20 PT-OP-B Current Condition Start: 03/19/20 13:53 Freq: Status: Active Protocol: Document 03/19/20 10:30 DCW (Rec: 03/19/20 14:07 DCW [id number]) Current Condition History of Current Condition Onset Date 03/12/20 Current Complaints Knee pain, stiffness, weakness s/p R ACL, lateral meniscus repair History of Current Condition Pt is a 34 year old male presenting one week s/p right ACL reconstruction (patella graft) and meniscus repair. 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 In the process, his left foot got caught in yaneli, resulting in him falling and landing on his right leg, which caused a right ACL and lateral meniscus tear. 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 Pt had surgical repair on 03/12/20 in [place], where he works , and the on 03/17/20, flew to [place], where he lives with his and four children. Post-op, pt has been performing ankle pumps, SLR, and glute/quad sets. Pt also is using bilateral axillary crutches and a brace, which is supposed to lock into extension during weight- bearing, although pt admits he is not 100% compliant with locking his brace. Pt notes his pain is overall well controlled, takes one pain pill in the AM, and then some edibles at night to help him sleep. Treatment Goals Patient/Caregiver Goals Pt's goals are to be brace- free in one month, regain quad function, and overall return to his normal functional level . PT-OP-C Subjective Start: 03/19/20 13:53 Freq: Status: Active Protocol: Document 04/09/20 10:30 DCW (Rec: 04/09/20 11:15 DCW [id number]) OP-PT Subjective Patient Comments Patient Comments Muscle-cervantes, it feels great, the joint itself doesn't hurt, the only thing is that my patella tendon feels kind of tight and sore, but both sides feel that way. Does note that he is able to lock out his knee now, and demonstrates hyperextension in standing. PT-OP-J Posture/Palpation/Skin Start: 03/19/20 14:08 Freq: Status: Active Protocol: Document 03/19/20 10:30 DCW (Rec: 03/19/20 14:29 DCW [id number]) Skin Assessment Circumference Measurement 3 Location 10 cm inferior to right knee joint line Measurement (Centimeters) 38.5 Comments 10 cm inferior to left knee joint line: 37.8 cm 2 Location 10 cm superior to right knee joint line Measurement (Centimeters) 44.0 Comments 10 cm superior to left knee joint line: 42.8 cm 1 Location Right knee joint line Measurement (Centimeters) 40.8 Comments Left knee joint line: 35.0 cm PT-OP-K Range of Motion Start: 03/19/20 13:53 Freq: Status: Active Protocol: Document 03/19/20 10:30 DCW (Rec: 03/19/20 14:29 DCW [id number]) Knee Goniometric Range of Motion Knee Right Patient Position Supine Flexion Active (degrees) 92 Extension Active (degrees) 0 Comments Extension lag during SLR: 8? PT-OP-M Strength Start: 03/19/20 13:53 Freq: Status: Active Protocol: Document 03/19/20 10:30 DCW (Rec: 03/19/20 14:29 DCW [id number]) Knee Strength Knee Manual Muscle Testing Right Flexion (S2) 3 Fair Extension (L3) 3 Fair Comments Pt able to lift leg againt gravity both with SLR and performing HS curl in standing , knee flexion and extension at least 3/5 PT-OP-Q Treatments Start: 03/19/20 13:53 Freq: Status: Active Protocol: Document 04/09/20 10:30 DCW (Rec: 04/09/20 11:15 DCW [id number]) Cardio Equipment Recumbent Bicycle Duration (Minutes) 6 Resistance 5 Seat Position 6 Gym Equipment Shuttle Recovery Unilateral Squats Resistance 50# Shuttle Recovery Platform Stable Bilateral Squats Resistance 100# Shuttle Recovery Platform Stable Shuttle Balance Red Details Staggered stance - weight shift Therapeutic Exercises Standing Exercises 2 Standing Exercise Name Step-ups/downs Side right Equipment Used 4 step 1 Standing Exercise Name Lunge vs lateral pull Side right Resistance Lv 3 Manual Therapy Treatment Soft Tissue Mobilization 3 Body Location Proximal Gastroc Mobilization Type Strumming,Sustained Pressure Intensity/Depth Superficial Body Position Hooklying 2 Body Location Piriformis Mobilization Type Strumming,Sustained Pressure Intensity/Depth Moderate Body Position Supine 1 Body Location ITB Mobilization Type Strumming,Sustained Pressure Intensity/Depth Moderate Body Position Supine PT-OP-T Assessment and Plan Start: 03/19/20 13:53 Freq: Status: Active Protocol: Document 04/09/20 10:30 DCW (Rec: 04/09/20 11:15 DCW [id number]) Physical Therapy Assessment Impairments Impairments Activity Tolerance,Balance, Edema,Functional Activities, Functional Mobility,Gait,Pain, ROM,Soft Tissue Mobility, Strength Goals Five Impairment Pt demonstrating post-op R quad and hamstring strength of 3/5 Assisted Goal (LTG) Pt to demonstrate 4/5 quad and hamstring strength in order to 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 LTG Duration 06/16/20 Four Impairment Pt right knee ROM limited to 0 -90? Assisted Goal (LTG) Pt to demonstrate right knee ROM 0-130? pain-free in order to return to prior level of function LTG Duration 05/17/20 Three Impairment Pt amb step-through gait wearing locked ext brace /c B axillary crutches Criminology Professor Goal (LTG) Pt to ambulate unassisted with no brace using a step-through gait pattern with no antalgia LTG Duration 05/17/20 Two Impairment Pt presents with circumfrential measurements L> R at joint line by 5.8 cm Assisted Goal (LTG) Circumfrential measurements at knee joint line L=R LTG Duration 05/17/20 One Impairment Pt does not have an appropriate home exercise program Short Term Goal (STG) Pt to be independent and compliant with an appropriate HEP STG Duration 04/16/20 Assessment Summary Assessment Pt advancing quickly, may need reminders to not overdo activities. Physical Therapy Plan Frequency and Duration Frequency of Treatment 2x/Week Duration of Treatment 10 weeks Plan of Care Start Date 03/19/20 Plan of Care End Date 05/28/20 Therapeutic Interventions Therapeutic Interventions Balance Training,Gait Training ,Home Exercise Program,Joint Mobilizations,Manual Therapy, Neuromuscular Re-education, Patient/Caregiver Education, Self-Care/Home Management,Soft Tissue Mobilization, Therapeutic Activities, Therapeutic Exercises Modalities Cold Pack/Ice Massage,Electric Stimulation,Hot Packs, Ultrasound Next Visit Focus/Plan Next Note Type Treatment Note Next Visit Plan ROM, edema control, gentle strengthening, gait training
--- NOTE | 2020-04-14 08:15 | PT.OTN ---
Current Diagnoses Pain in right knee (04/14/20) Stiffness of right knee, not elsewhere classified (04/14/20) Muscle weakness (generalized) (04/14/20) Other abnormalities of gait and mobility (04/14/20) Other tear of lateral meniscus, current injury, right knee, initial encounter (04/14/20) Sprain of anterior cruciate ligament of right knee, initial encounter (04/14/20) Physical Therapy Treatment Note PT-OP-A Visit Information Start: 03/19/20 13:53 Freq: Status: Active Protocol: Document 04/14/20 07:30 LD (Rec: 04/14/20 08:55 LD [id number]) Out-Patient Physical Therapy Visit Information Visit Information Visit Type Treatment Note Visit Note DAMARI Cam co-led tx w/ HEDDLE MACHINE OPERATOR Hailey. Visit Start Time 07:30 Visit Stop Time 08:15 Total Visit Minutes 45 Visit Number 8 Number of HEDDLE MACHINE OPERATOR Visits 1 PT-OP-B Current Condition Start: 03/19/20 13:53 Freq: Status: Active Protocol: Document 03/19/20 10:30 DCW (Rec: 03/19/20 14:07 DCW [id number]) Current Condition History of Current Condition Onset Date 03/12/20 Current Complaints Knee pain, stiffness, weakness s/p R ACL, lateral meniscus repair History of Current Condition Pt is a 34 year old male presenting one week s/p right ACL reconstruction (patella graft) and meniscus repair. 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 In the process, his left foot got caught in yaneli, resulting in him falling and landing on his right leg, which caused a right ACL and lateral meniscus tear. 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 Pt had surgical repair on 03/12/20 in [place], where he works , and the on 03/17/20, flew to [place], where he lives with his and four children. Post-op, pt has been performing ankle pumps, SLR, and glute/quad sets. Pt also is using bilateral axillary crutches and a brace, which is supposed to lock into extension during weight- bearing, although pt admits he is not 100% compliant with locking his brace. Pt notes his pain is overall well controlled, takes one pain pill in the AM, and then some edibles at night to help him sleep. Treatment Goals Patient/Caregiver Goals Pt's goals are to be brace- free in one month, regain quad function, and overall return to his normal functional level . PT-OP-C Subjective Start: 03/19/20 13:53 Freq: Status: Active Protocol: Document 04/14/20 07:30 LD (Rec: 04/14/20 08:55 LD [id number]) OP-PT Subjective Patient Comments Patient Comments I've been stretching my quads , patella tendon still feels kind of tight. PT-OP-J Posture/Palpation/Skin Start: 03/19/20 14:08 Freq: Status: Active Protocol: Document 03/19/20 10:30 DCW (Rec: 03/19/20 14:29 DCW [id number]) Skin Assessment Circumference Measurement 3 Location 10 cm inferior to right knee joint line Measurement (Centimeters) 38.5 Comments 10 cm inferior to left knee joint line: 37.8 cm 2 Location 10 cm superior to right knee joint line Measurement (Centimeters) 44.0 Comments 10 cm superior to left knee joint line: 42.8 cm 1 Location Right knee joint line Measurement (Centimeters) 40.8 Comments Left knee joint line: 35.0 cm PT-OP-K Range of Motion Start: 03/19/20 13:53 Freq: Status: Active Protocol: Document 03/19/20 10:30 DCW (Rec: 03/19/20 14:29 DCW [id number]) Knee Goniometric Range of Motion Knee Right Patient Position Supine Flexion Active (degrees) 92 Extension Active (degrees) 0 Comments Extension lag during SLR: 8? PT-OP-M Strength Start: 03/19/20 13:53 Freq: Status: Active Protocol: Document 03/19/20 10:30 DCW (Rec: 03/19/20 14:29 DCW [id number]) Knee Strength Knee Manual Muscle Testing Right Flexion (S2) 3 Fair Extension (L3) 3 Fair Comments Pt able to lift leg againt gravity both with SLR and performing HS curl in standing , knee flexion and extension at least 3/5 PT-OP-Q Treatments Start: 03/19/20 13:53 Freq: Status: Active Protocol: Document 04/14/20 07:30 LD (Rec: 04/14/20 08:55 LD [id number]) Cardio Equipment Recumbent Bicycle Duration (Minutes) 6 Resistance 5 Seat Position 6 Gym Equipment Shuttle Recovery Unilateral Squats Resistance 50# Shuttle Recovery Platform Stable Bilateral Squats Resistance 125# Shuttle Recovery Platform Stable Shuttle Balance Red Details Staggered stance - weight shift Comments 1. Cued for upright stable trunk w/ focus on quad/HS/ glute facilitatiion. 2. Balloon for dynamic stability of R UE. Therapeutic Exercises Sitting Exercises HS curl Side right Resistance L2 Equipment Used Chair, added to HEP Standing Exercises Star slide Standing Exercise Name 3 o'clock, 6 o'clock (added HEP) Side right Equipment Used foot slider Reps/Minutes 10x3 Comments R leg stance, L leg mvmt Eccentric step down Side right (added to HEP) Resistance lateral Reps/Minutes 10x Comments cued for knee behind toes w/ posterior facilitation 2 Standing Exercise Name Step-ups/downs Side right Equipment Used 4 step 1 Standing Exercise Name Lunge vs lateral pull Side right Resistance Lv 3 Comments anchored stair on rail PT-OP-T Assessment and Plan Start: 03/19/20 13:53 Freq: Status: Active Protocol: Document 04/14/20 07:30 LD (Rec: 04/14/20 08:55 LD [id number]) Physical Therapy Assessment Goals Five Impairment Pt demonstrating post-op R quad and hamstring strength of 3/5 Entry Level Project Engineer Goal (LTG) Pt to demonstrate 4/5 quad and hamstring strength in order to 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 LTG Duration 06/16/20 Four Impairment Pt right knee ROM limited to 0 -90? [facility] Goal (LTG) Pt to demonstrate right knee ROM 0-130? pain-free in order to return to prior level of function LTG Duration 05/17/20 Three Impairment Pt amb step-through gait wearing locked ext brace /c B axillary crutches [facility] Goal (LTG) Pt to ambulate unassisted with no brace using a step-through gait pattern with no antalgia LTG Duration 05/17/20 Two Impairment Pt presents with circumfrential measurements L> R at joint line by 5.8 cm [facility] Goal (LTG) Circumfrential measurements at knee joint line L=R LTG Duration 05/17/20 One Impairment Pt does not have an appropriate home exercise program Short Term Goal (STG) Pt to be independent and compliant with an appropriate HEP STG Duration 04/16/20 Assessment Summary Assessment Pt is continuously improving with ROM, is rolling muscles if needed for assist in tightness. Added new exercises to HEP focusing on strengthening HS to decrease hyperextension of knee: HS curl, eccentric lateral step down, and star slider. Pt tolerated ex well with good quad control, providing occasional cues for slow control. Take ROM measurement of R knee next tx. Physical Therapy Plan Frequency and Duration Frequency of Treatment 2x/Week Duration of Treatment 10 weeks Plan of Care Start Date 03/19/20 Plan of Care End Date 05/28/20 Therapeutic Interventions Therapeutic Interventions Balance Training,Gait Training ,Home Exercise Program,Joint Mobilizations,Manual Therapy, Neuromuscular Re-education, Patient/Caregiver Education, Self-Care/Home Management,Soft Tissue Mobilization, Therapeutic Activities, Therapeutic Exercises Modalities Cold Pack/Ice Massage,Electric Stimulation,Hot Packs, Ultrasound Next Visit Focus/Plan Next Note Type Treatment Note Next Visit Plan Assess response to added HEP: HS curl, lateral step down, star sliders. Measure ROM of knee next tx. Continue per pt POC: ROM, edema control, gentle strengthening, gait training.
--- NOTE | 2020-04-17 13:50 | PT.OTN ---
Current Diagnoses Pain in right knee (04/17/20) Stiffness of right knee, not elsewhere classified (04/17/20) Muscle weakness (generalized) (04/17/20) Other abnormalities of gait and mobility (04/17/20) Other tear of lateral meniscus, current injury, right knee, initial encounter (04/17/20) Sprain of anterior cruciate ligament of right knee, initial encounter (04/17/20) Physical Therapy Treatment Note PT-OP-A Visit Information Start: 03/19/20 13:53 Freq: Status: Active Protocol: Document 04/17/20 13:01 HH (Rec: 04/17/20 13:50 HH [id number]) Out-Patient Physical Therapy Visit Information Visit Information Visit Type Treatment Note Visit Start Time 13:03 Visit Stop Time 13:45 Total Visit Minutes 42 Visit Number 9 Number of SOFTWARE VALIDATION ENGINEER Visits 0 PT-OP-B Current Condition Start: 03/19/20 13:53 Freq: Status: Active Protocol: Document 03/19/20 10:30 DCW (Rec: 03/19/20 14:07 DCW [id number]) Current Condition History of Current Condition Onset Date 03/12/20 Current Complaints Knee pain, stiffness, weakness s/p R ACL, lateral meniscus repair History of Current Condition Pt is a 34 year old male presenting one week s/p right ACL reconstruction (patella graft) and meniscus repair. 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 In the process, his left foot got caught in yaneli, resulting in him falling and landing on his right leg, which caused a right ACL and lateral meniscus tear. 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 Pt had surgical repair on 03/12/20 in [place], where he works , and the on 03/17/20, flew to [place], where he lives with his and four children. Post-op, pt has been performing ankle pumps, SLR, and glute/quad sets. Pt also is using bilateral axillary crutches and a brace, which is supposed to lock into extension during weight- bearing, although pt admits he is not 100% compliant with locking his brace. Pt notes his pain is overall well controlled, takes one pain pill in the AM, and then some edibles at night to help him sleep. Treatment Goals Patient/Caregiver Goals Pt's goals are to be brace- free in one month, regain quad function, and overall return to his normal functional level . PT-OP-C Subjective Start: 03/19/20 13:53 Freq: Status: Active Protocol: Document 04/17/20 13:01 HH (Rec: 04/17/20 13:50 HH [id number]) OP-PT Subjective Patient Comments Patient Comments Everything is good but the patella tendon feels tight as usual. Patient Reported Progress Improving PT-OP-J Posture/Palpation/Skin Start: 03/19/20 14:08 Freq: Status: Active Protocol: Document 03/19/20 10:30 DCW (Rec: 03/19/20 14:29 DCW [id number]) Skin Assessment Circumference Measurement 3 Location 10 cm inferior to right knee joint line Measurement (Centimeters) 38.5 Comments 10 cm inferior to left knee joint line: 37.8 cm 2 Location 10 cm superior to right knee joint line Measurement (Centimeters) 44.0 Comments 10 cm superior to left knee joint line: 42.8 cm 1 Location Right knee joint line Measurement (Centimeters) 40.8 Comments Left knee joint line: 35.0 cm PT-OP-K Range of Motion Start: 03/19/20 13:53 Freq: Status: Active Protocol: Document 03/19/20 10:30 DCW (Rec: 03/19/20 14:29 DCW [id number]) Knee Goniometric Range of Motion Knee Right Patient Position Supine Flexion Active (degrees) 92 Extension Active (degrees) 0 Comments Extension lag during SLR: 8? PT-OP-M Strength Start: 03/19/20 13:53 Freq: Status: Active Protocol: Document 03/19/20 10:30 DCW (Rec: 03/19/20 14:29 DCW [id number]) Knee Strength Knee Manual Muscle Testing Right Flexion (S2) 3 Fair Extension (L3) 3 Fair Comments Pt able to lift leg againt gravity both with SLR and performing HS curl in standing , knee flexion and extension at least 3/5 PT-OP-Q Treatments Start: 03/19/20 13:53 Freq: Status: Active Protocol: Document 04/17/20 13:01 (Rec: 04/17/20 13:50 [id number]) Gym Equipment Shuttle Recovery Unilateral Squats Resistance 50# Shuttle Recovery Platform Stable Therapeutic Exercises Sitting Exercises HS curl Side right Resistance L2 Equipment Used Chair Standing Exercises TKE Side right Equipment Used level 3 Reps/Minutes 10 x2 Comments for HEP Star slide Standing Exercise Name 3 o'clock, 6 o'clock Side right Equipment Used foot slider Reps/Minutes 10x3 Comments R leg stance, L leg mvmt Eccentric step down Side right Resistance lateral Reps/Minutes 10x Comments cued for knee behind toes w/ posterior facilitation 2 Standing Exercise Name Step-ups/downs Side right Equipment Used 4 step Comments no support Manual Therapy Treatment Soft Tissue Mobilization quads & hamstrings Body Location L Mobilization Type Sustained Pressure,Trigger Point Release Intensity/Depth Deep Body Position Supine PT-OP-T Assessment and Plan Start: 03/19/20 13:53 Freq: Status: Active Protocol: Document 04/17/20 13:01 (Rec: 04/17/20 13:50 [id number]) Physical Therapy Assessment Goals Five Impairment Pt demonstrating post-op R quad and hamstring strength of 3/5 Residential Goal (LTG) Pt to demonstrate 4/5 quad and hamstring strength in order to 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 LTG Duration 06/16/20 Four Impairment Pt right knee ROM limited to 0 -90? Residential Goal (LTG) Pt to demonstrate right knee ROM 0-130? pain-free in order to return to prior level of function LTG Duration 05/17/20 Three Impairment Pt amb step-through gait wearing locked ext brace /c B axillary crutches Senior Counsel Commercial Goal (LTG) Pt to ambulate unassisted with no brace using a step-through gait pattern with no antalgia LTG Duration 05/17/20 Two Impairment Pt presents with circumfrential measurements L> R at joint line by 5.8 cm Residential Goal (LTG) Circumfrential measurements at knee joint line L=R LTG Duration 05/17/20 One Impairment Pt does not have an appropriate home exercise program Short Term Goal (STG) Pt to be independent and compliant with an appropriate HEP STG Duration 04/16/20 Assessment Summary Assessment Pt cont to improve with his ROM and strength. Noticed pt still lacks of R TKE during stance phase. Tx focused on reaching TKE and dynamic single leg balance. Pt debbie session well Physical Therapy Plan Frequency and Duration Frequency of Treatment 2x/Week Duration of Treatment 10 weeks Plan of Care Start Date 03/19/20 Plan of Care End Date 05/28/20 Next Visit Focus/Plan Next Note Type Treatment Note Next Visit Plan Assess response to added HEP: HS curl, lateral step down, star sliders. Measure ROM of knee next tx. Continue per pt POC: ROM, edema control, gentle strengthening, gait training.
--- NOTE | 2020-04-21 08:15 | PT.OTN ---
Current Diagnoses Pain in right knee (04/21/20) Stiffness of right knee, not elsewhere classified (04/21/20) Muscle weakness (generalized) (04/21/20) Other abnormalities of gait and mobility (04/21/20) Other tear of lateral meniscus, current injury, right knee, initial encounter (04/21/20) Sprain of anterior cruciate ligament of right knee, initial encounter (04/21/20) Physical Therapy Treatment Note PT-OP-A Visit Information Start: 03/19/20 13:53 Freq: Status: Active Protocol: Document 04/21/20 07:32 SP (Rec: 04/21/20 09:06 SP [id number]) Out-Patient Physical Therapy Visit Information Visit Information Visit Type Treatment Note Visit Start Time 07:32 Visit Stop Time 08:15 Total Visit Minutes 43 Visit Number 10 Number of MIXED CROP FARMER Visits 1 PT-OP-B Current Condition Start: 03/19/20 13:53 Freq: Status: Active Protocol: Document 03/19/20 10:30 DCW (Rec: 03/19/20 14:07 DCW [id number]) Current Condition History of Current Condition Onset Date 03/12/20 Current Complaints Knee pain, stiffness, weakness s/p R ACL, lateral meniscus repair History of Current Condition Pt is a 34 year old male presenting one week s/p right ACL reconstruction (patella graft) and meniscus repair. 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 In the process, his left foot got caught in yaneli, resulting in him falling and landing on his right leg, which caused a right ACL and lateral meniscus tear. 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 Pt had surgical repair on 03/12/20 in [place], where he works , and the on 03/17/20, flew to [place], where he lives with his and four children. Post-op, pt has been performing ankle pumps, SLR, and glute/quad sets. Pt also is using bilateral axillary crutches and a brace, which is supposed to lock into extension during weight- bearing, although pt admits he is not 100% compliant with locking his brace. Pt notes his pain is overall well controlled, takes one pain pill in the AM, and then some edibles at night to help him sleep. Treatment Goals Patient/Caregiver Goals Pt's goals are to be brace- free in one month, regain quad function, and overall return to his normal functional level . PT-OP-C Subjective Start: 03/19/20 13:53 Freq: Status: Active Protocol: Document 04/21/20 07:32 SP (Rec: 04/21/20 09:06 SP [id number]) OP-PT Subjective Patient Comments Patient Comments Pt reported took a bit easy this weekend due to slipped a little when walking on hardwood floor in socks and caught self, just put some extra pressure over front of my knee. No pop or adverse PT-OP-J Posture/Palpation/Skin Start: 03/19/20 14:08 Freq: Status: Active Protocol: Document 03/19/20 10:30 DCW (Rec: 03/19/20 14:29 DCW [id number]) Skin Assessment Circumference Measurement 3 Location 10 cm inferior to right knee joint line Measurement (Centimeters) 38.5 Comments 10 cm inferior to left knee joint line: 37.8 cm 2 Location 10 cm superior to right knee joint line Measurement (Centimeters) 44.0 Comments 10 cm superior to left knee joint line: 42.8 cm 1 Location Right knee joint line Measurement (Centimeters) 40.8 Comments Left knee joint line: 35.0 cm PT-OP-K Range of Motion Start: 03/19/20 13:53 Freq: Status: Active Protocol: Document 03/19/20 10:30 DCW (Rec: 03/19/20 14:29 DCW [id number]) Knee Goniometric Range of Motion Knee Right Patient Position Supine Flexion Active (degrees) 92 Extension Active (degrees) 0 Comments Extension lag during SLR: 8? PT-OP-M Strength Start: 03/19/20 13:53 Freq: Status: Active Protocol: Document 03/19/20 10:30 DCW (Rec: 03/19/20 14:29 DCW [id number]) Knee Strength Knee Manual Muscle Testing Right Flexion (S2) 3 Fair Extension (L3) 3 Fair Comments Pt able to lift leg againt gravity both with SLR and performing HS curl in standing , knee flexion and extension at least 3/5 PT-OP-Q Treatments Start: 03/19/20 13:53 Freq: Status: Active Protocol: Document 04/21/20 07:32 SP (Rec: 04/21/20 09:06 SP [id number]) Gym Equipment Shuttle Recovery Unilateral Squats Resistance 50# Shuttle Recovery Platform Stable Reps/Time 2x15 Bilateral Squats Resistance 125# Shuttle Recovery Platform Stable Reps/Time 2x15 Shuttle Balance Red Details NBOS, Staggered stance - weight shift Comments 1. Cued for upright stable trunk w/ focus on quad/HS/ glute facilitatiion. 2. Balloon for dynamic stability of R UE. Therapeutic Exercises Prone Exercises HS curl Prone Exercise Name no pain Side right Resistance 5#>8#>10# DB between BLE Reps/Minutes x10 reps each Comments cued not end range and space between B knees- good form and HS engagement Sitting Exercises HS curl Side right Resistance L3 Equipment Used Chair Reps/Minutes 2x10 Comments cued sit back full in chair, HS facilitation Standing Exercises HS curl Standing Exercise Name facing corner wall- added today Side right Resistance 7#>10 # leg wt Reps/Minutes x10 each Comments cued slow pacing HS facilitation, no pain lift Standing Exercise Name added today Resistance 25# single dumbbell Reps/Minutes 3x10 Comments good form and alignment TKE Side right Equipment Used level 3 Reps/Minutes 10 x2 Comments for HEP Star slide Standing Exercise Name 3, 6, 12 o'clock Side right Equipment Used foot slider Reps/Minutes 10x3 Comments R leg stance, L leg mvmt Eccentric step down Standing Exercise Name Forward, lateral Side right Resistance lateral Equipment Used 4 step Reps/Minutes 10x Comments cued for knee behind toes w/ posterior facilitation- good form, no pain PT-OP-T Assessment and Plan Start: 03/19/20 13:53 Freq: Status: Active Protocol: Document 04/21/20 07:32 SP (Rec: 04/21/20 09:06 SP [id number]) Physical Therapy Assessment Goals Five Impairment Pt demonstrating post-op R quad and hamstring strength of 3/5 Nursing Home Goal (LTG) Pt to demonstrate 4/5 quad and hamstring strength in order 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 LTG Duration 06/16/20 Four Impairment Pt right knee ROM limited to 0 -90? Nursing Home Goal (LTG) Pt to demonstrate right knee ROM 0-130? pain-free in order to return to prior level of function LTG Duration 05/17/20 Three Impairment Pt amb step-through gait wearing locked ext brace /c B axillary crutches Nursing Home Goal (LTG) Pt to ambulate unassisted with no brace using a step-through gait pattern with no antalgia LTG Duration 05/17/20 Two Impairment Pt presents with circumfrential measurements L> R at joint line by 5.8 cm Slat Basket Maker Helper Goal (LTG) Circumfrential measurements at knee joint line L=R LTG Duration 05/17/20 One Impairment Pt does not have an appropriate home exercise program Short Term Goal (STG) Pt to be independent and compliant with an appropriate HEP STG Duration 04/16/20 Assessment Summary Assessment Pt demonstrated good form and knee alignment with posterior chain facilitation and proprioception ther ex today. Initiated HS curl DB vs leg wt and close chain deadlift with light wt DB back to wall for posterior chain awareness, no pain. Physical Therapy Plan Frequency and Duration Frequency of Treatment 2x/Week Duration of Treatment 10 weeks Plan of Care Start Date 03/19/20 Plan of Care End Date 05/28/20 Therapeutic Interventions Therapeutic Interventions Balance Training,Gait Training ,Home Exercise Program,Joint Mobilizations,Manual Therapy, Neuromuscular Re-education, Patient/Caregiver Education, Self-Care/Home Management,Soft Tissue Mobilization, Therapeutic Activities, Therapeutic Exercises Modalities Cold Pack/Ice Massage,Electric Stimulation,Hot Packs, Ultrasound Next Visit Focus/Plan Next Note Type Treatment Note Next Visit Plan Assess response to added HEP: HS curl prone/ standing, lateral step down, star sliders, initatied deadlift. Next tx assess if ok to use HS curl machine vs wt did last tx for awaress and safety for gym and deadlift form off wall . Continue per pt POC: ROM, edema control, gentle strengthening, gait training.
--- NOTE | 2020-04-25 11:17 | PT.OTN ---
Current Diagnoses Pain in right knee (04/25/20) Stiffness of right knee, not elsewhere classified (04/25/20) Muscle weakness (generalized) (04/25/20) Other abnormalities of gait and mobility (04/25/20) Other tear of lateral meniscus, current injury, right knee, initial encounter (04/25/20) Sprain of anterior cruciate ligament of right knee, initial encounter (04/25/20) Physical Therapy Treatment Note PT-OP-A Visit Information Start: 03/19/20 13:53 Freq: Status: Active Protocol: Document 04/25/20 10:30 DCW (Rec: 04/25/20 11:17 DCW [id number]) Out-Patient Physical Therapy Visit Information Visit Information Visit Type Treatment Note Visit Start Time 10:30 Visit Stop Time 11:15 Total Visit Minutes 45 Visit Number 11 Number of MID LEVEL BUSINESS ANALYST Visits 0 Evaluation Information Evaluation Date 03/19/20 PT-OP-B Current Condition Start: 03/19/20 13:53 Freq: Status: Active Protocol: Document 03/19/20 10:30 DCW (Rec: 03/19/20 14:07 DCW [id number]) Current Condition History of Current Condition Onset Date 03/12/20 Current Complaints Knee pain, stiffness, weakness s/p R ACL, lateral meniscus repair History of Current Condition Pt is a 34 year old male presenting one week s/p right ACL reconstruction (patella graft) and meniscus repair. 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 In the process, his left foot got caught in yaneli, resulting in him falling and landing on his right leg, which caused a right ACL and lateral meniscus tear. 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 Pt had surgical repair on 03/12/20 in [place], where he works , and the on 03/17/20, flew to [place], where he lives with his and four children. Post-op, pt has been performing ankle pumps, SLR, and glute/quad sets. Pt also is using bilateral axillary crutches and a brace, which is supposed to lock into extension during weight- bearing, although pt admits he is not 100% compliant with locking his brace. Pt notes his pain is overall well controlled, takes one pain pill in the AM, and then some edibles at night to help him sleep. Treatment Goals Patient/Caregiver Goals Pt's goals are to be brace- free in one month, regain quad function, and overall return to his normal functional level . PT-OP-C Subjective Start: 03/19/20 13:53 Freq: Status: Active Protocol: Document 04/25/20 10:30 DCW (Rec: 04/25/20 11:17 DCW [id number]) OP-PT Subjective Patient Comments Patient Comments I'm alright, I feel like I haven't his a plateau per se, but the same things are still bothering me. Still some pain at the patella, still some swelling. PT-OP-J Posture/Palpation/Skin Start: 03/19/20 14:08 Freq: Status: Active Protocol: Document 03/19/20 10:30 DCW (Rec: 03/19/20 14:29 DCW [id number]) Skin Assessment Circumference Measurement 3 Location 10 cm inferior to right knee joint line Measurement (Centimeters) 38.5 Comments 10 cm inferior to left knee joint line: 37.8 cm 2 Location 10 cm superior to right knee joint line Measurement (Centimeters) 44.0 Comments 10 cm superior to left knee joint line: 42.8 cm 1 Location Right knee joint line Measurement (Centimeters) 40.8 Comments Left knee joint line: 35.0 cm PT-OP-K Range of Motion Start: 03/19/20 13:53 Freq: Status: Active Protocol: Document 03/19/20 10:30 DCW (Rec: 03/19/20 14:29 DCW [id number]) Knee Goniometric Range of Motion Knee Right Patient Position Supine Flexion Active (degrees) 92 Extension Active (degrees) 0 Comments Extension lag during SLR: 8? PT-OP-M Strength Start: 03/19/20 13:53 Freq: Status: Active Protocol: Document 03/19/20 10:30 DCW (Rec: 03/19/20 14:29 DCW [id number]) Knee Strength Knee Manual Muscle Testing Right Flexion (S2) 3 Fair Extension (L3) 3 Fair Comments Pt able to lift leg againt gravity both with SLR and performing HS curl in standing , knee flexion and extension at least 3/5 PT-OP-Q Treatments Start: 03/19/20 13:53 Freq: Status: Active Protocol: Document 04/25/20 10:30 DCW (Rec: 04/25/20 11:17 DCW [id number]) Cardio Equipment Recumbent Bicycle Duration (Minutes) 6 Resistance 5 Seat Position 6 Gym Equipment Shuttle Recovery Plyometric Hopping Details Double leg Resistance 25# Unilateral Squats Resistance 62# Shuttle Recovery Platform Stable Reps/Time 2x15 Bilateral Squats Resistance 125# Shuttle Recovery Platform Stable Reps/Time 2x15 Shuttle Balance Red Details Staggered /c ball toss, Lateral weight shift Therapeutic Exercises Standing Exercises Star slide Standing Exercise Name 9, 6, 12 o'clock Side right Equipment Used foot slider Reps/Minutes 10x3 Comments R leg stance, L leg mvmt Eccentric step down Standing Exercise Name Forward, lateral Side right Resistance lateral Equipment Used 4 step Reps/Minutes 10x Comments cued for knee behind toes w/ posterior facilitation- good form, no pain Manual Therapy Treatment Joint Mobilizations 1 Joint Patellofemoral mobilization Direction Inf/Sup PT-OP-T Assessment and Plan Start: 03/19/20 13:53 Freq: Status: Active Protocol: Document 04/25/20 10:30 DCW (Rec: 04/25/20 11:17 DCW [id number]) Physical Therapy Assessment Impairments Impairments Activity Tolerance,Balance, Edema,Functional Activities, Functional Mobility,Gait,Pain, ROM,Soft Tissue Mobility, Strength Goals Five Impairment Pt demonstrating post-op R quad and hamstring strength of 3/5 Fast Food Team Member Goal (LTG) Pt to demonstrate 4/5 quad and hamstring strength in order to 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 LTG Duration 06/16/20 Four Impairment Pt right knee ROM limited to 0 -90? Detention Goal (LTG) Pt to demonstrate right knee ROM 0-130? pain-free in order to return to prior level of function LTG Duration 05/17/20 Three Impairment Pt amb step-through gait wearing locked ext brace /c B axillary crutches Detention Goal (LTG) Pt to ambulate unassisted with no brace using a step-through gait pattern with no antalgia LTG Duration 05/17/20 Two Impairment Pt presents with circumfrential measurements L> R at joint line by 5.8 cm Detention Goal (LTG) Circumfrential measurements at knee joint line L=R LTG Duration 05/17/20 One Impairment Pt does not have an appropriate home exercise program Short Term Goal (STG) Pt to be independent and compliant with an appropriate HEP STG Duration 04/16/20 Assessment Summary Assessment Pt continuing to do well as he progresses from ACL repair. [place] significantly better with mobilization of patella. Physical Therapy Plan Frequency and Duration Frequency of Treatment 2x/Week Duration of Treatment 10 weeks Plan of Care Start Date 03/19/20 Plan of Care End Date 05/28/20 Therapeutic Interventions Therapeutic Interventions Balance Training,Gait Training ,Home Exercise Program,Joint Mobilizations,Manual Therapy, Neuromuscular Re-education, Patient/Caregiver Education, Self-Care/Home Management,Soft Tissue Mobilization, Therapeutic Activities, Therapeutic Exercises Modalities Cold Pack/Ice Massage,Electric Stimulation,Hot Packs, Ultrasound Next Visit Focus/Plan Next Note Type Treatment Note Next Visit Plan Assess response to added HEP: HS curl prone/ standing, lateral step down, star sliders, initatied deadlift. Next tx assess if ok to use HS curl machine vs wt did last tx for awaress and safety for gym and deadlift form off wall . Continue per pt POC: ROM, edema control, gentle strengthening, gait training.
--- NOTE | 2020-04-28 08:15 | PT.OTN ---
Current Diagnoses Pain in right knee (04/28/20) Stiffness of right knee, not elsewhere classified (04/28/20) Muscle weakness (generalized) (04/28/20) Other abnormalities of gait and mobility (04/28/20) Other tear of lateral meniscus, current injury, right knee, initial encounter (04/28/20) Sprain of anterior cruciate ligament of right knee, initial encounter (04/28/20) Physical Therapy Treatment Note PT-OP-A Visit Information Start: 03/19/20 13:53 Freq: Status: Active Protocol: Document 04/28/20 07:32 SP (Rec: 04/28/20 08:18 SP [id number]) Out-Patient Physical Therapy Visit Information Visit Information Visit Type Treatment Note Visit Start Time 07:32 Visit Stop Time 08:15 Total Visit Minutes 43 Visit Number 12 Number of ORACLE IDENTITY MANAGEMENT CONSULTANT Visits 1 PT-OP-B Current Condition Start: 03/19/20 13:53 Freq: Status: Active Protocol: Document 03/19/20 10:30 DCW (Rec: 03/19/20 14:07 DCW [id number]) Current Condition History of Current Condition Onset Date 03/12/20 Current Complaints Knee pain, stiffness, weakness s/p R ACL, lateral meniscus repair History of Current Condition Pt is a 34 year old male presenting one week s/p right ACL reconstruction (patella graft) and meniscus repair. 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 In the process, his left foot got caught in yaneli, resulting in him falling and landing on his right leg, which caused a right ACL and lateral meniscus tear. 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 Pt had surgical repair on 03/12/20 in [place], where he works , and the on 03/17/20, flew to [place], where he lives with his and four children. Post-op, pt has been performing ankle pumps, SLR, and glute/quad sets. Pt also is using bilateral axillary crutches and a brace, which is supposed to lock into extension during weight- bearing, although pt admits he is not 100% compliant with locking his brace. Pt notes his pain is overall well controlled, takes one pain pill in the AM, and then some edibles at night to help him sleep. Treatment Goals Patient/Caregiver Goals Pt's goals are to be brace- free in one month, regain quad function, and overall return to his normal functional level . PT-OP-C Subjective Start: 03/19/20 13:53 Freq: Status: Active Protocol: Document 04/28/20 07:32 SP (Rec: 04/28/20 08:18 SP [id number]) OP-PT Subjective Patient Comments Patient Comments Pt responded well to last tx. Pt stated has been incorporating gym equipment at the gym on Sat: leg press, modified single leg deadlift with 25# KB and abd/ add machine at the gym, was muscular soreness but feels good. PT-OP-J Posture/Palpation/Skin Start: 03/19/20 14:08 Freq: Status: Active Protocol: Document 03/19/20 10:30 DCW (Rec: 03/19/20 14:29 DCW [id number]) Skin Assessment Circumference Measurement 3 Location 10 cm inferior to right knee joint line Measurement (Centimeters) 38.5 Comments 10 cm inferior to left knee joint line: 37.8 cm 2 Location 10 cm superior to right knee joint line Measurement (Centimeters) 44.0 Comments 10 cm superior to left knee joint line: 42.8 cm 1 Location Right knee joint line Measurement (Centimeters) 40.8 Comments Left knee joint line: 35.0 cm PT-OP-K Range of Motion Start: 03/19/20 13:53 Freq: Status: Active Protocol: Document 03/19/20 10:30 DCW (Rec: 03/19/20 14:29 DCW [id number]) Knee Goniometric Range of Motion Knee Right Patient Position Supine Flexion Active (degrees) 92 Extension Active (degrees) 0 Comments Extension lag during SLR: 8? PT-OP-M Strength Start: 03/19/20 13:53 Freq: Status: Active Protocol: Document 03/19/20 10:30 DCW (Rec: 03/19/20 14:29 DCW [id number]) Knee Strength Knee Manual Muscle Testing Right Flexion (S2) 3 Fair Extension (L3) 3 Fair Comments Pt able to lift leg againt gravity both with SLR and performing HS curl in standing , knee flexion and extension at least 3/5 PT-OP-Q Treatments Start: 03/19/20 13:53 Freq: Status: Active Protocol: Document 04/28/20 07:32 SP (Rec: 04/28/20 08:18 SP [id number]) Gym Equipment Cable Column (Body Solid) hip abd/ add Details Adduction, Abduction Resistance 40# each Reps/Time 2x15 each Shuttle Recovery Plyometric Hopping Details Double leg x10, Single push off to DL land x10 Resistance 25# Shuttle Recovery Platform Stable Reps/Time 2x10 each Unilateral Squats Resistance 62# Shuttle Recovery Platform Stable Reps/Time 2x15 Bilateral Squats Resistance 125# Shuttle Recovery Platform Stable Reps/Time 2x15 Shuttle Balance Red Details Eccentric squat Comments x10 Therapeutic Exercises Standing Exercises Bosu squat Equipment Used near rail/post support PRN Reps/Minutes 2x10 Comments cued decline foot alignment- good form no pain Single leg retro lunge off bosu Standing Exercise Name alternate LE Side right Equipment Used bosu, contact rail/post Reps/Minutes 2x10 Comments cued knee alignment w/ toes and opp LE straight back lift Standing Exercise Name Review HEP (gym) Side bilateral Resistance 25# single dumbbell Reps/Minutes 2x10 Comments good form and alignment, opposiite toe contact floor stabillity for RLE Star slide Standing Exercise Name 9, 6, 12 o'clock Side right Resistance Tb #2 Equipment Used foot slider Reps/Minutes 10x3 Comments R leg stance, L leg mvmt Eccentric step down Standing Exercise Name Forward, lateral Side right Resistance lateral Equipment Used 6 step Reps/Minutes 10x each direction Comments cued for knee behind toes w/ posterior facilitation- good form, no pain PT-OP-T Assessment and Plan Start: 03/19/20 13:53 Freq: Status: Active Protocol: Document 04/28/20 07:32 SP (Rec: 04/28/20 08:18 SP [id number]) Physical Therapy Assessment Goals Five Impairment Pt demonstrating post-op R quad and hamstring strength of 3/5 Half-Way Goal (LTG) Pt to demonstrate 4/5 quad and hamstring strength in order to 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 LTG Duration 06/16/20 Four Impairment Pt right knee ROM limited to 0 -90? Runway Model Goal (LTG) Pt to demonstrate right knee ROM 0-130? pain-free in order to return to prior level of function LTG Duration 05/17/20 Three Impairment Pt amb step-through gait wearing locked ext brace /c B axillary crutches Runway Model Goal (LTG) Pt to ambulate unassisted with no brace using a step-through gait pattern with no antalgia LTG Duration 05/17/20 Two Impairment Pt presents with circumfrential measurements L> R at joint line by 5.8 cm Runway Model Goal (LTG) Circumfrential measurements at knee joint line L=R LTG Duration 05/17/20 One Impairment Pt does not have an appropriate home exercise program Short Term Goal (STG) Pt to be independent and compliant with an appropriate HEP STG Duration 04/16/20 Assessment Summary Assessment Pt responded well to ther ex. Initiated uneven surface close chain with good response and alignment with good understanding of knee with and behind toes. Pt stated feels good muscle tiring with progressive stabilization today to do at home until more visit authorized. Physical Therapy Plan Frequency and Duration Frequency of Treatment 2x/Week Duration of Treatment 10 weeks Plan of Care Start Date 03/19/20 Plan of Care End Date 05/28/20 Therapeutic Interventions Therapeutic Interventions Balance Training,Gait Training ,Home Exercise Program,Joint Mobilizations,Manual Therapy, Neuromuscular Re-education, Patient/Caregiver Education, Self-Care/Home Management,Soft Tissue Mobilization, Therapeutic Activities, Therapeutic Exercises Modalities Cold Pack/Ice Massage,Electric Stimulation,Hot Packs, Ultrasound Next Visit Focus/Plan Next Note Type Treatment Note Next Visit Plan Assess response to added HEP: jadeu, added Tb to star slides, increased step down 6 . Continue per pt POC: ROM, edema control, gentle strengthening, gait training.
--- NOTE | 2020-05-13 08:15 | PT.OTN ---
Current Diagnoses Pain in right knee (05/13/20) Stiffness of right knee, not elsewhere classified (05/13/20) Muscle weakness (generalized) (05/13/20) Other abnormalities of gait and mobility (05/13/20) Other tear of lateral meniscus, current injury, right knee, initial encounter (05/13/20) Sprain of anterior cruciate ligament of right knee, initial encounter (05/13/20) Physical Therapy Treatment Note PT-OP-A Visit Information Start: 03/19/20 13:53 Freq: Status: Active Protocol: Document 05/13/20 07:25 SP (Rec: 05/13/20 08:21 SP [id number]) Out-Patient Physical Therapy Visit Information Visit Information Visit Type Treatment Note Visit Start Time 07:33 Visit Stop Time 08:15 Total Visit Minutes 42 Visit Number 13 Number of BROADCAST SYSTEMS ENGINEER Visits 2 Evaluation Information Evaluation Date 03/19/20 PT-OP-B Current Condition Start: 03/19/20 13:53 Freq: Status: Active Protocol: Document 03/19/20 10:30 DCW (Rec: 03/19/20 14:07 DCW [id number]) Current Condition History of Current Condition Onset Date 03/12/20 Current Complaints Knee pain, stiffness, weakness s/p R ACL, lateral meniscus repair History of Current Condition Pt is a 34 year old male presenting one week s/p right ACL reconstruction (patella graft) and meniscus repair. 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 In the process, his left foot got caught in yaneli, resulting in him falling and landing on his right leg, which caused a right ACL and lateral meniscus tear. 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 Pt had surgical repair on 03/12/20 in [place], where he works , and the on 03/17/20, flew to [place], where he lives with his and four children. Post-op, pt has been performing ankle pumps, SLR, and glute/quad sets. Pt also is using bilateral axillary crutches and a brace, which is supposed to lock into extension during weight- bearing, although pt admits he is not 100% compliant with locking his brace. Pt notes his pain is overall well controlled, takes one pain pill in the AM, and then some edibles at night to help him sleep. Treatment Goals Patient/Caregiver Goals Pt's goals are to be brace- free in one month, regain quad function, and overall return to his normal functional level . PT-OP-C Subjective Start: 03/19/20 13:53 Freq: Status: Active Protocol: Document 05/13/20 07:25 SP (Rec: 05/13/20 08:21 SP [id number]) OP-PT Subjective Patient Comments Patient Comments Pt stated both knees are sore, the only challenge is getting up from a 1/2 knee position RLE in front (1/2 knee range) but knows will take time to build up strength . PT-OP-J Posture/Palpation/Skin Start: 03/19/20 14:08 Freq: Status: Active Protocol: Document 03/19/20 10:30 DCW (Rec: 03/19/20 14:29 DCW [id number]) Skin Assessment Circumference Measurement 3 Location 10 cm inferior to right knee joint line Measurement (Centimeters) 38.5 Comments 10 cm inferior to left knee joint line: 37.8 cm 2 Location 10 cm superior to right knee joint line Measurement (Centimeters) 44.0 Comments 10 cm superior to left knee joint line: 42.8 cm 1 Location Right knee joint line Measurement (Centimeters) 40.8 Comments Left knee joint line: 35.0 cm PT-OP-K Range of Motion Start: 03/19/20 13:53 Freq: Status: Active Protocol: Document 05/13/20 07:25 SP (Rec: 05/13/20 08:21 SP [id number]) Knee Goniometric Range of Motion Knee Right Patient Position Supine Flexion Active (degrees) 144 Extension Active (degrees) 0 Comments Extension lag during SLR: 0? PT-OP-M Strength Start: 03/19/20 13:53 Freq: Status: Active Protocol: Document 03/19/20 10:30 DCW (Rec: 03/19/20 14:29 DCW [id number]) Knee Strength Knee Manual Muscle Testing Right Flexion (S2) 3 Fair Extension (L3) 3 Fair Comments Pt able to lift leg againt gravity both with SLR and performing HS curl in standing , knee flexion and extension at least 3/5 PT-OP-Q Treatments Start: 03/19/20 13:53 Freq: Status: Active Protocol: Document 05/13/20 07:25 SP (Rec: 05/13/20 08:21 SP [id number]) Gym Equipment Cable Column (Body Solid) hip abd/ add Details Adduction, Abduction Resistance 40# each Reps/Time 2x15 each Shuttle Recovery Plyometric Hopping Details Double leg x30, Single push off to DL land x20 Resistance 37# Shuttle Recovery Platform Stable Unilateral Squats Resistance 75# Shuttle Recovery Platform Stable Reps/Time 2x15 Bilateral Squats Resistance 150# Shuttle Recovery Platform Stable,Unstable Reps/Time 2x15 stable 150#, x15 unstable 125# Shuttle Balance Red Details NBOS, stagger Comments 1. wt shift 2. head turn 10 sec hold- easy 3. EC - 30 sec each position (more challenging LLE forward R back) 4. ball toss trampoline: NBOS, stagger, tandem, SLS x15 throws Therapeutic Exercises Standing Exercises lunge Standing Exercise Name stationary stable and uneven surface Equipment Used x10 stable floor B, Bosu under RLE x8 Comments cued slow pacing control, knee alignment- painfree PT-OP-T Assessment and Plan Start: 03/19/20 13:53 Freq: Status: Active Protocol: Document 05/13/20 07:25 SP (Rec: 05/13/20 08:21 SP [id number]) Physical Therapy Assessment Goals Five Impairment Pt demonstrating post-op R quad and hamstring strength of 3/5 Puppet Maker Goal (LTG) Pt to demonstrate 4/5 quad and hamstring strength in order to 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 05/13/20: progressing hip flex 4/5 hip abd 4+/5 knee flex 4+/5 knee ext 4/5 LTG Duration 06/16/20 Four Impairment Pt right knee ROM limited to 0 -90? Care Home Goal (LTG) Pt to demonstrate right knee ROM 0-130? pain-free in order to return to prior level of function 05/13/20: Goal met- 0-144 deg. LTG Duration 05/17/20 Three Impairment Pt amb step-through gait wearing locked ext brace /c B axillary crutches Short Term Goal (STG) Goal met: ambulate no AD Puppet Maker Goal (LTG) Pt to ambulate unassisted with no brace using a step-through gait pattern with no antalgia Goal Met LTG Duration 05/17/20 Two Impairment Pt presents with circumfrential measurements L> R at joint line by 5.8 cm Puppet Maker Goal (LTG) Circumferential measurements at knee joint line L=R 05/13/20:R 38 cm, L 38 cm LTG Duration 05/17/20 One Impairment Pt does not have an appropriate home exercise program Short Term Goal (STG) Pt to be independent and compliant with an appropriate HEP STG Duration 04/16/20 Assessment Summary Assessment Pt is progressing in AROM and strength CKC. See measurements and strength MMT updates. Tx focused on ROM, stabilization with no pain, R LE more challenged in back position during shuttle balance and stationary lunge painfree. Pt states is incorporating ex more at home. Physical Therapy Plan Frequency and Duration Frequency of Treatment 2x/Week Duration of Treatment 10 weeks Plan of Care Start Date 03/19/20 Plan of Care End Date 05/28/20 Therapeutic Interventions Therapeutic Interventions Balance Training,Gait Training ,Home Exercise Program,Joint Mobilizations,Manual Therapy, Neuromuscular Re-education, Patient/Caregiver Education, Self-Care/Home Management,Soft Tissue Mobilization, Therapeutic Activities, Therapeutic Exercises Modalities Cold Pack/Ice Massage,Electric Stimulation,Hot Packs, Ultrasound Next Visit Focus/Plan Next Note Type Treatment Note Next Visit Plan Assess response to last tx: shuttle balance ball through, increased resistance shuttle recovery, initiating stationary lunge uneven under RLE front, stable surface with LLE front.42 Continue per pt POC: ROM, edema control, gentle strengthening, gait training.
--- NOTE | 2020-05-16 10:30 | PT.OTN ---
Current Diagnoses Pain in right knee (05/16/20) Stiffness of right knee, not elsewhere classified (05/16/20) Muscle weakness (generalized) (05/16/20) Other abnormalities of gait and mobility (05/16/20) Other tear of lateral meniscus, current injury, right knee, initial encounter (05/16/20) Sprain of anterior cruciate ligament of right knee, initial encounter (05/16/20) Physical Therapy Treatment Note PT-OP-A Visit Information Start: 03/19/20 13:53 Freq: Status: Active Protocol: Document 05/16/20 09:47 SP (Rec: 05/16/20 12:46 SP [id number]) Out-Patient Physical Therapy Visit Information Visit Information Visit Type Treatment Note Visit Start Time 09:47 Visit Stop Time 10:30 Total Visit Minutes 43 Visit Number 14 Number of PHLEBOTOMY SPECIALIST Visits 3 Evaluation Information Evaluation Date 03/19/20 PT-OP-B Current Condition Start: 03/19/20 13:53 Freq: Status: Active Protocol: Document 03/19/20 10:30 DCW (Rec: 03/19/20 14:07 DCW [id number]) Current Condition History of Current Condition Onset Date 03/12/20 Current Complaints Knee pain, stiffness, weakness s/p R ACL, lateral meniscus repair History of Current Condition Pt is a 34 year old male presenting one week s/p right ACL reconstruction (patella graft) and meniscus repair. 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 In the process, his left foot got caught in yaneli, resulting in him falling and landing on his right leg, which caused a right ACL and lateral meniscus tear. 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 Pt had surgical repair on 03/12/20 in [place], where he works , and the on 03/17/20, flew to [place], where he lives with his and four children. Post-op, pt has been performing ankle pumps, SLR, and glute/quad sets. Pt also is using bilateral axillary crutches and a brace, which is supposed to lock into extension during weight- bearing, although pt admits he is not 100% compliant with locking his brace. Pt notes his pain is overall well controlled, takes one pain pill in the AM, and then some edibles at night to help him sleep. Treatment Goals Patient/Caregiver Goals Pt's goals are to be brace- free in one month, regain quad function, and overall return to his normal functional level . PT-OP-C Subjective Start: 03/19/20 13:53 Freq: Status: Active Protocol: Document 05/16/20 09:47 SP (Rec: 05/16/20 12:46 SP [id number]) OP-PT Subjective Patient Comments Patient Comments Pt stated felt fine after stationary lunges last tx but notices still hardest activity is to get up off floor, not as strong and not able to do end range deep squat sitting on feet flat. Pt stated followed up with physician and pleased with range, stated cleared more activity, no twisting/pivoting. Patient Reported Progress Improving PT-OP-J Posture/Palpation/Skin Start: 03/19/20 14:08 Freq: Status: Active Protocol: Document 03/19/20 10:30 DCW (Rec: 03/19/20 14:29 DCW [id number]) Skin Assessment Circumference Measurement 3 Location 10 cm inferior to right knee joint line Measurement (Centimeters) 38.5 Comments 10 cm inferior to left knee joint line: 37.8 cm 2 Location 10 cm superior to right knee joint line Measurement (Centimeters) 44.0 Comments 10 cm superior to left knee joint line: 42.8 cm 1 Location Right knee joint line Measurement (Centimeters) 40.8 Comments Left knee joint line: 35.0 cm PT-OP-K Range of Motion Start: 03/19/20 13:53 Freq: Status: Active Protocol: Document 05/13/20 07:25 SP (Rec: 05/13/20 08:21 SP [id number]) Knee Goniometric Range of Motion Knee Right Patient Position Supine Flexion Active (degrees) 144 Extension Active (degrees) 0 Comments Extension lag during SLR: 0? PT-OP-M Strength Start: 03/19/20 13:53 Freq: Status: Active Protocol: Document 03/19/20 10:30 DCW (Rec: 03/19/20 14:29 DCW [id number]) Knee Strength Knee Manual Muscle Testing Right Flexion (S2) 3 Fair Extension (L3) 3 Fair Comments Pt able to lift leg againt gravity both with SLR and performing HS curl in standing , knee flexion and extension at least 3/5 PT-OP-Q Treatments Start: 03/19/20 13:53 Freq: Status: Active Protocol: Document 05/16/20 09:47 SP (Rec: 05/16/20 12:46 SP [id number]) Cardio Equipment Elliptical Other assess form next tx Gym Equipment Cable Column (Body Solid) hip flex> reverse lunge Details knee stability w/ slider retro contact slide under LLE Resistance 20 Reps/Time 2x10 alternate LE >90 deg RLE, able with no pain deeper knee flex LLE HS curl Details single- alternate LE Resistance 40 Reps/Time 3x20- good muscle burn, cued slow eccentric return Shuttle Recovery Unilateral Squats Resistance 75#>87# Shuttle Recovery Platform Stable Reps/Time x15 each Bilateral Squats Resistance 150# Shuttle Recovery Platform Stable,Unstable Reps/Time 2x15 stable 175#, x15 unstable 137# Shuttle Balance Red Details NBOS, stagger Comments balloon quick volley w/ 2nd person wide range reach SBA- CGA Therapeutic Exercises Standing Exercises foam roll LEs Standing Exercise Name quad, HS, calf, ITB Side right Reps/Minutes 3 min total Comments time and pressure with opposite LE and BUe assist modified pistol squat (SL squat) Standing Exercise Name alternate LE Side bilateral Resistance AROM Equipment Used raised table 24>22>21 inches Reps/Minutes x10 each height, end x5 reps at 21 Comments good knee alignment, cued posterior chain hip hinge buttocks back Eccentric step down Standing Exercise Name lateral eccentric step taps Equipment Used 4 step Reps/Minutes 2x10 alternate LE Comments good pacing with proper knee alignment PT-OP-T Assessment and Plan Start: 03/19/20 13:53 Freq: Status: Active Protocol: Document 05/16/20 09:47 SP (Rec: 05/16/20 12:46 SP [id number]) Physical Therapy Assessment Goals Five Impairment Pt demonstrating post-op R quad and hamstring strength of 3/5 Weather Forecaster Goal (LTG) Pt to demonstrate 4/5 quad and hamstring strength in order to 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 05/13/20: progressing hip flex 4/5 hip abd 4+/5 knee flex 4+/5 knee ext 4/5 LTG Duration 06/16/20 Four Impairment Pt right knee ROM limited to 0 -90? Detention Goal (LTG) Pt to demonstrate right knee ROM 0-130? pain-free in order to return to prior level of function 05/13/20: Goal met- 0-144 deg. LTG Duration 05/17/20 Three Impairment Pt amb step-through gait wearing locked ext brace /c B axillary crutches Short Term Goal (STG) Goal met: ambulate no AD Weather Forecaster Goal (LTG) Pt to ambulate unassisted with no brace using a step-through gait pattern with no antalgia Goal Met LTG Duration 05/17/20 Two Impairment Pt presents with circumfrential measurements L> R at joint line by 5.8 cm Weather Forecaster Goal (LTG) Circumferential measurements at knee joint line L=R 05/13/20:R 38 cm, L 38 cm LTG Duration 05/17/20 One Impairment Pt does not have an appropriate home exercise program Short Term Goal (STG) Pt to be independent and compliant with an appropriate HEP STG Duration 04/16/20 Progress Towards Goals Progress Towards Goals Progressing Toward Goals Progress Comments Pt reports gaining ROM and gaining strength and more stable, just can't get into that end range deep squat yet. Assessment Summary Assessment Pt responded well to ther ex today, worked with gym equipment mainly today to give safe options to use at gym with good self corrections and improved knee alignment and stability. Pt states hasn't gone to gym lately, busy with family so doing ex at home more but disussed how to complete today act with TB at home. Physical Therapy Plan Frequency and Duration Frequency of Treatment 2x/Week Duration of Treatment 10 weeks Plan of Care Start Date 03/19/20 Plan of Care End Date 05/28/20 Therapeutic Interventions Therapeutic Interventions Balance Training,Gait Training ,Home Exercise Program,Joint Mobilizations,Manual Therapy, Neuromuscular Re-education, Patient/Caregiver Education, Self-Care/Home Management,Soft Tissue Mobilization, Therapeutic Activities, Therapeutic Exercises Modalities Cold Pack/Ice Massage,Electric Stimulation,Hot Packs, Ultrasound Next Visit Focus/Plan Next Note Type Treatment Note Next Visit Plan Assess response to last tx: shuttle balance ball volley, increased resistance shuttle recovery, initiated retro lunge w/ cable, Sh curl machine SL and modified pistol squat (SL squat) for home. Continue per PT POC: ROM, edema control, gentle strengthening, gait training.
--- NOTE | 2020-05-19 13:00 | PT.OTN ---
Current Diagnoses Pain in right knee (05/19/20) Stiffness of right knee, not elsewhere classified (05/19/20) Muscle weakness (generalized) (05/19/20) Other abnormalities of gait and mobility (05/19/20) Other tear of lateral meniscus, current injury, right knee, initial encounter (05/19/20) Sprain of anterior cruciate ligament of right knee, initial encounter (05/19/20) Physical Therapy Treatment Note PT-OP-A Visit Information Start: 03/19/20 13:53 Freq: Status: Active Protocol: Document 05/19/20 12:21 SP (Rec: 05/19/20 14:44 SP [id number]) Out-Patient Physical Therapy Visit Information Visit Information Visit Type Treatment Note Visit Note Pt 4 min late for appt. PN due . Visit Start Time 12:21 Visit Stop Time 13:00 Total Visit Minutes 39 Visit Number 15 Number of HIMS CODER Visits 4 Evaluation Information Evaluation Date 03/19/20 PT-OP-B Current Condition Start: 03/19/20 13:53 Freq: Status: Active Protocol: Document 03/19/20 10:30 DCW (Rec: 03/19/20 14:07 DCW [id number]) Current Condition History of Current Condition Onset Date 03/12/20 Current Complaints Knee pain, stiffness, weakness s/p R ACL, lateral meniscus repair History of Current Condition Pt is a 34 year old male presenting one week s/p right ACL reconstruction (patella graft) and meniscus repair. 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 In the process, his left foot got caught in yaneli, resulting in him falling and landing on his right leg, which caused a right ACL and lateral meniscus tear. 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 Pt had surgical repair on 03/12/20 in [place], where he works , and the on 03/17/20, flew to [place], where he lives with his and four children. Post-op, pt has been performing ankle pumps, SLR, and glute/quad sets. Pt also is using bilateral axillary crutches and a brace, which is supposed to lock into extension during weight- bearing, although pt admits he is not 100% compliant with locking his brace. Pt notes his pain is overall well controlled, takes one pain pill in the AM, and then some edibles at night to help him sleep. Treatment Goals Patient/Caregiver Goals Pt's goals are to be brace- free in one month, regain quad function, and overall return to his normal functional level . PT-OP-C Subjective Start: 03/19/20 13:53 Freq: Status: Active Protocol: Document 05/19/20 12:21 SP (Rec: 05/19/20 14:44 SP [id number]) OP-PT Subjective Patient Comments Patient Comments Pt stated I had some muscle soreness after last tx no pain or R knee irritation. Feeling doing well. Pt stated did some of the single leg squat to raised bed but didnt' do much else for leg strengthening since last tx. Pt states follows up with surgeon mid June and hoping to return to work beg July. 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 Patient Reported Progress Improving PT-OP-J Posture/Palpation/Skin Start: 03/19/20 14:08 Freq: Status: Active Protocol: Document 03/19/20 10:30 DCW (Rec: 03/19/20 14:29 DCW [id number]) Skin Assessment Circumference Measurement 3 Location 10 cm inferior to right knee joint line Measurement (Centimeters) 38.5 Comments 10 cm inferior to left knee joint line: 37.8 cm 2 Location 10 cm superior to right knee joint line Measurement (Centimeters) 44.0 Comments 10 cm superior to left knee joint line: 42.8 cm 1 Location Right knee joint line Measurement (Centimeters) 40.8 Comments Left knee joint line: 35.0 cm PT-OP-K Range of Motion Start: 03/19/20 13:53 Freq: Status: Active Protocol: Document 05/13/20 07:25 SP (Rec: 05/13/20 08:21 SP [id number]) Knee Goniometric Range of Motion Knee Right Patient Position Supine Flexion Active (degrees) 144 Extension Active (degrees) 0 Comments Extension lag during SLR: 0? PT-OP-M Strength Start: 03/19/20 13:53 Freq: Status: Active Protocol: Document 03/19/20 10:30 DCW (Rec: 03/19/20 14:29 DCW [id number]) Knee Strength Knee Manual Muscle Testing Right Flexion (S2) 3 Fair Extension (L3) 3 Fair Comments Pt able to lift leg againt gravity both with SLR and performing HS curl in standing , knee flexion and extension at least 3/5 PT-OP-Q Treatments Start: 03/19/20 13:53 Freq: Status: Active Protocol: Document 05/19/20 12:21 SP (Rec: 05/19/20 14:44 SP [id number]) Gym Equipment Cable Column (Body Solid) hip flex> reverse lunge Details knee stability w/ slider retro contact slide under LLE Resistance 20 Reps/Time 2x10 alternate LE >90 deg RLE, able with no pain deeper knee flex LLE HS curl Details single- alternate LE Resistance 40 Reps/Time 3x20- good muscle burn, cued slow eccentric return hip abd/ add Details Adduction, Abduction Resistance 40# each Reps/Time 2x15 each Shuttle Recovery Plyometric Hopping Details Double leg x30, Single push off to DL land x20 Resistance 37# Shuttle Recovery Platform Stable Unilateral Squats Resistance 87# Shuttle Recovery Platform Stable Reps/Time x15 each Bilateral Squats Shuttle Recovery Platform Stable,Unstable Reps/Time 2x15 stable 175#, x15 unstable 137# Therapeutic Exercises Standing Exercises Eccentric step down Standing Exercise Name lateral eccentric descend 4 stairs Equipment Used 6 step Reps/Minutes x4 sets, 2 sets post manual Comments proper knee alignment, improved Manual Therapy Treatment Soft Tissue Mobilization patellar tendon Body Location R and scar mobility Mobilization Type Cross-Friction,Myofascial Release,Sustained Pressure, Other Intensity/Depth Moderate Body Position Supine Comments with tendon and cross friction , sustained pressure/ MFR with AAROM R knee flexion, resisted AROM patellar superior glide x5 manual then self application to decreased tension. 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 05/13/20: progressing hip flex 4/5 hip abd 4+/5 knee flex 4+/5 knee ext 4/5 LTG Duration 06/16/20 Four Impairment Pt right knee ROM limited to 0 -90? Skilled Nursing Goal (LTG) Pt to demonstrate right knee ROM 0-130? pain-free in order to return to prior level of function 05/13/20: Goal met- 0-144 deg. LTG Duration 05/17/20 Three Impairment Pt amb step-through gait wearing locked ext brace /c B axillary crutches Short Term Goal (STG) Goal met: ambulate no AD Skilled Nursing Goal (LTG) Pt to ambulate unassisted with no brace using a step-through gait pattern with no antalgia Goal Met LTG Duration 05/17/20 Two Impairment Pt presents with circumfrential measurements L> R at joint line by 5.8 cm Skilled Nursing Goal (LTG) Circumferential measurements at knee joint line L=R 05/13/20:R 38 cm, L 38 cm Goal met LTG Duration 05/17/20 One Impairment Pt does not have an appropriate home exercise program Short Term Goal (STG) Pt to be independent and compliant with an appropriate HEP 05/19/20: progressing, strength and stability with deep knee flexion. STG Duration 04/16/20 Progress Towards Goals Progress Towards Goals Progressing Toward Goals Progress Comments Pt progressing in eccentric control descending stairs, improved decreased patellar tension post manual STMs Assessment Summary Assessment Pt tolerated over all tx, focused on strengthening, stabilization and flexibility with education on self patellar tendon STMs to assist decreased tension during stair mgt and lunge positioning activities. Physical Therapy Plan Frequency and Duration Frequency of Treatment 2x/Week Duration of Treatment 10 weeks Plan of Care Start Date 03/19/20 Plan of Care End Date 05/28/20 Therapeutic Interventions Therapeutic Interventions Balance Training,Gait Training ,Home Exercise Program,Joint Mobilizations,Manual Therapy, Neuromuscular Re-education, Patient/Caregiver Education, Self-Care/Home Management,Soft Tissue Mobilization, Therapeutic Activities, Therapeutic Exercises Modalities Cold Pack/Ice Massage,Electric Stimulation,Hot Packs, Ultrasound Next Visit Focus/Plan Next Note Type Treatment Note Next Visit Plan Assess response to last tx: manual patellar tendon, increased shuttle recovery, retro lunge w/ cable, HS curl machine SL, eccentric stair mgt Continue per PT POC: ROM, edema control, gentle strengthening, gait training.
--- NOTE | 2020-05-27 15:40 | PT.OTN ---
Current Diagnoses Pain in right knee (05/27/20) Stiffness of right knee, not elsewhere classified (05/27/20) Muscle weakness (generalized) (05/27/20) Other abnormalities of gait and mobility (05/27/20) Other tear of lateral meniscus, current injury, right knee, initial encounter (05/27/20) Sprain of anterior cruciate ligament of right knee, initial encounter (05/27/20) Physical Therapy Treatment Note PT-OP-A Visit Information Start: 03/19/20 13:53 Freq: Status: Active Protocol: Document 05/27/20 14:30 DCW (Rec: 05/27/20 15:30 DCW [id number]) Out-Patient Physical Therapy Visit Information Visit Information Visit Type Progress Note Visit Start Time 14:30 Visit Stop Time 15:15 Total Visit Minutes 45 Visit Number 16 Number of [employer] 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 In the process, his left foot got caught in yaneli, resulting in him falling and landing on his right leg, which caused a right ACL and lateral meniscus tear. 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 Pt had surgical repair on 03/12/20 in [place], where he works , and the on 03/17/20, flew to [place], where he lives with his and four children. Post-op, pt has been performing ankle pumps, SLR, and glute/quad sets. Pt also is using bilateral axillary crutches and a brace, which is supposed to lock into extension during weight- bearing, although pt admits he is not 100% compliant with locking his brace. Pt notes his pain is overall well controlled, takes one pain pill in the AM, and then some edibles at night to help him sleep. Treatment Goals Patient/Caregiver Goals Pt's goals are to be brace- free in one month, regain quad function, and overall return to his normal functional level . PT-OP-C Subjective Start: 03/19/20 13:53 Freq: Status: Active Protocol: Document 05/27/20 14:30 DCW (Rec: 05/27/20 15:30 DCW [id number]) OP-PT Subjective Patient Comments Patient Comments Pt happy with where I'm at for the moment, now it's just a waiting game, letting things heal. Admits he walked 5-6 miles this past weekend, no residual pain. PT-OP-E Functional Tests Start: 05/27/20 14:44 Freq: Status: Active Protocol: Document 05/27/20 14:30 DCW (Rec: 05/27/20 15:30 DCW [id number]) Functional Tests Star Excursion Balance Test Score Position 1: L(stance): 37.5 in , R: 29 in Position 2: L:35 in, R: 29.5 in Position 3: L:36.5 in, R: 33 in Position 4: L: 38 in, R: 36.75 in Position 5: L: 40 in, R: 37.75 in Position 6: L: 35.5 in, R: 31 in Position 7: L: 29 in, R: 23.25 in Position 8: L: 28 in, R: 27.5 in PT-OP-J Posture/Palpation/Skin Start: 03/19/20 14:08 Freq: Status: Active Protocol: Document 05/27/20 14:30 DCW (Rec: 05/27/20 14:44 DCW [id number]) Skin Assessment Circumference Measurement 3 Location 10 cm inferior to right knee joint line Measurement (Centimeters) 35.4 Comments 10 cm inferior to left knee joint line: 37.8 cm 2 Location 10 cm superior to right knee joint line Measurement (Centimeters) 42.5 Comments 10 cm superior to left knee joint line: 42.8 cm 1 Location Right knee joint line Measurement (Centimeters) 38.2 Comments Left knee joint line: 35.0 cm PT-OP-K Range of Motion Start: 03/19/20 13:53 Freq: Status: Active Protocol: Document 05/27/20 14:30 DCW (Rec: 05/27/20 14:44 DCW [id number]) Knee Goniometric Range of Motion Knee Right Patient Position Supine Flexion Active (degrees) 143 Extension Active (degrees) 0 Comments Extension lag during SLR: 0? PT-OP-M Strength Start: 03/19/20 13:53 Freq: Status: Active Protocol: Document 05/27/20 14:30 DCW (Rec: 05/27/20 14:44 DCW [id number]) Knee Strength Knee Manual Muscle Testing Right Flexion (S2) 4+ Good+ Extension (L3) 4+ Good+ PT-OP-Q Treatments Start: 03/19/20 13:53 Freq: Status: Active Protocol: Document 05/27/20 14:30 DCW (Rec: 05/27/20 15:30 DCW [id number]) Cardio Equipment Elliptical Duration (Minutes) 5 Resistance 6 Gym Equipment Cable Column (Body Solid) Leg Extension Details Double leg Resistance 40# HS curl Details single- alternate LE Resistance 40 Reps/Time 3x20- good muscle burn, cued slow eccentric return hip abd/ add Details Adduction, Abduction Resistance 40# each Reps/Time 2x15 each Shuttle Recovery Plyometric Hopping Details Double leg x30 Resistance 37# Shuttle Recovery Platform Stable Neuro Re-Education Treatment Other Activities 1 Details Testing PT-OP-T Assessment and Plan Start: 03/19/20 13:53 Freq: Status: Active Protocol: Document 05/27/20 14:30 DCW (Rec: 05/27/20 15:30 DCW [id number]) Physical Therapy Assessment Impairments Impairments Activity Tolerance,Balance, Edema,Functional Activities, Functional Mobility,Gait,Pain, ROM,Soft Tissue Mobility, Strength Goals Five Impairment Pt demonstrating post-op R quad and hamstring strength of 3/5 Project Asst Goal (LTG) Pt to demonstrate 4/5 quad and hamstring strength in order to 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 05/13/20: progressing hip flex 4/5 hip abd 4+/5 knee flex 4+/5 knee ext 4/5 LTG Duration 06/16/20 Four Impairment Pt right knee ROM limited to 0 -90? Project Asst Goal (LTG) Pt to demonstrate right knee ROM 0-130? pain-free in order to return to prior level of function 05/13/20: Goal met- 0-144 deg. LTG Duration Met Three Impairment Pt amb step-through gait wearing locked ext brace /c B axillary crutches Short Term Goal (STG) Goal met: ambulate no AD Project Asst Goal (LTG) Pt to ambulate unassisted with no brace using a step-through gait pattern with no antalgia Goal Met LTG Duration Met Two Impairment Pt presents with circumfrential measurements L> R at joint line by 5.8 cm Project Asst Goal (LTG) Circumferential measurements at knee joint line L=R LTG Duration 06/26/20 - Improving One Impairment Pt does not have an appropriate home exercise program Short Term Goal (STG) Pt to be independent and compliant with an appropriate HEP 05/19/20: progressing, strength and stability with deep knee flexion. STG Duration 06/26/20 Progress Towards Goals Progress Towards Goals Progressing Toward Goals Progress Comments Pt progressing in eccentric control descending stairs, improved decreased patellar tension post manual STMs Assessment Summary Assessment Pt progressing very well at the moment, has been increasing his activity level outside of PT. Very good knee ROM and strength, still some mild joint effusion, Star excursion test shows continues right leg instability. 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 Physical Therapy Plan Frequency and Duration Frequency of Treatment 2x/Week Duration of Treatment 10 weeks Plan of Care Start Date 05/27/20 Plan of Care End Date 08/05/20 Therapeutic Interventions Therapeutic Interventions Balance Training,Gait Training ,Home Exercise Program,Joint Mobilizations,Manual Therapy, Neuromuscular Re-education, Patient/Caregiver Education, Self-Care/Home Management,Soft Tissue Mobilization, Therapeutic Activities, Therapeutic Exercises Modalities Cold Pack/Ice Massage,Electric Stimulation,Hot Packs, Ultrasound Next Visit Focus/Plan Next Note Type Treatment Note Next Visit Plan Assess response to last tx: manual patellar tendon, increased shuttle recovery, retro lunge w/ cable, HS curl machine SL, eccentric stair mgt Continue per PT POC: ROM, edema control, gentle strengthening, gait training.
--- NOTE | 2020-05-27 15:41 | PT.OPPOC ---
Physical, Occupational & Speech Therapy At [facility] Current Diagnoses Pain in right knee (05/27/20) Stiffness of right knee, not elsewhere classified (05/27/20) Muscle weakness (generalized) (05/27/20) Other abnormalities of gait and mobility (05/27/20) Other tear of lateral meniscus, current injury, right knee, initial encounter (05/27/20) Sprain of anterior cruciate ligament of right knee, initial encounter (05/27/20) Visit Care Team Role Provider Type Chema Cash MD Primary Care Provider Physician Specialty: [facility] Address: [address] [place] [address] [place], [address] Email: [email or web address] Charli Gonzalez MD Attending Provider Non-Staff Referring Provider Specialty: Orthopedic Surgery Address: [address] [place] [address], [id number] Email: Plan Of Care PT-OP-T Assessment and Plan Start: 03/19/20 13:53 Freq: Status: Active Protocol: Document 05/27/20 14:30 DCW (Rec: 05/27/20 15:30 DCW [id number]) Physical Therapy Assessment Impairments Impairments Activity Tolerance,Balance, Edema,Functional Activities, Functional Mobility,Gait,Pain, ROM,Soft Tissue Mobility, Strength Goals Five Impairment Pt demonstrating post-op R quad and hamstring strength of 3/5 Intermediate Goal (LTG) Pt to demonstrate 4/5 quad and hamstring strength in order to 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 05/13/20: progressing hip flex 4/5 hip abd 4+/5 knee flex 4+/5 knee ext 4/5 LTG Duration 06/16/20 Four Impairment Pt right knee ROM limited to 0 -90? Intermediate Goal (LTG) Pt to demonstrate right knee ROM 0-130? pain-free in order to return to prior level of function 05/13/20: Goal met- 0-144 deg. LTG Duration Met Three Impairment Pt amb step-through gait wearing locked ext brace /c B axillary crutches Short Term Goal (STG) Goal met: ambulate no AD Intermediate Goal (LTG) Pt to ambulate unassisted with no brace using a step-through gait pattern with no antalgia Goal Met LTG Duration Met Two Impairment Pt presents with circumfrential measurements L> R at joint line by 5.8 cm Intermediate Goal (LTG) Circumferential measurements at knee joint line L=R LTG Duration 06/26/20 - Improving One Impairment Pt does not have an appropriate home exercise program Short Term Goal (STG) Pt to be independent and compliant with an appropriate HEP 05/19/20: progressing, strength and stability with deep knee flexion. STG Duration 06/26/20 Progress Towards Goals Progress Towards Goals Progressing Toward Goals Progress Comments Pt progressing in eccentric control descending stairs, improved decreased patellar tension post manual STMs Assessment Summary Assessment Pt progressing very well at the moment, has been increasing his activity level outside of PT. Very good knee ROM and strength, still some mild joint effusion, Star excursion test shows continues right leg instability. 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 Physical Therapy Plan Frequency and Duration Frequency of Treatment 2x/Week Duration of Treatment 10 weeks Plan of Care Start Date 05/27/20 Plan of Care End Date 08/05/20 Therapeutic Interventions Therapeutic Interventions Balance Training,Gait Training ,Home Exercise Program,Joint Mobilizations,Manual Therapy, Neuromuscular Re-education, Patient/Caregiver Education, Self-Care/Home Management,Soft Tissue Mobilization, Therapeutic Activities, Therapeutic Exercises Modalities Cold Pack/Ice Massage,Electric Stimulation,Hot Packs, Ultrasound Next Visit Focus/Plan Next Note Type Treatment Note Next Visit Plan Assess response to last tx: manual patellar tendon, increased shuttle recovery, retro lunge w/ cable, HS curl machine SL, eccentric stair mgt Continue per PT POC: ROM, edema control, gentle strengthening, gait training. Plan of Care Dates Plan of Care Start Date 05/27/20 Plan of Care End Date 08/05/20 Electronically Signed by: Flakito Colon, PT 05/27/20 3734 Please Sign and Return: I have reviewed this Plan of Care and certify that the skilled therapy services above are required to meet the patient?s needs. Physician Signature Date Printed Name and Credentials Clinical Instructor Signature Printed Name and Credentials
--- NOTE | 2020-06-02 08:20 | PT.OTN ---
Current Diagnoses Pain in right knee (06/02/20) Stiffness of right knee, not elsewhere classified (06/02/20) Muscle weakness (generalized) (06/02/20) Other abnormalities of gait and mobility (06/02/20) Other tear of lateral meniscus, current injury, right knee, initial encounter (06/02/20) Sprain of anterior cruciate ligament of right knee, initial encounter (06/02/20) Physical Therapy Treatment Note PT-OP-A Visit Information Start: 03/19/20 13:53 Freq: Status: Active Protocol: Document 06/02/20 07:34 SP (Rec: 06/02/20 08:38 SP [id number]) Out-Patient Physical Therapy Visit Information Visit Information Visit Type Treatment Note Visit Start Time 07:34 Visit Stop Time 08:20 Total Visit Minutes 46 Visit Number 17 Number of INFORMATION SECURITY ARCHITECT Visits 1 Evaluation Information Evaluation Date 03/19/20 PT-OP-B Current Condition Start: 03/19/20 13:53 Freq: Status: Active Protocol: Document 03/19/20 10:30 DCW (Rec: 03/19/20 14:07 DCW [id number]) Current Condition History of Current Condition Onset Date 03/12/20 Current Complaints Knee pain, stiffness, weakness s/p R ACL, lateral meniscus repair History of Current Condition Pt is a 34 year old male presenting one week s/p right ACL reconstruction (patella graft) and meniscus repair. 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 In the process, his left foot got caught in yaneli, resulting in him falling and landing on his right leg, which caused a right ACL and lateral meniscus tear. 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 Pt had surgical repair on 03/12/20 in [place], where he works , and the on 03/17/20, flew to [place], where he lives with his and four children. Post-op, pt has been performing ankle pumps, SLR, and glute/quad sets. Pt also is using bilateral axillary crutches and a brace, which is supposed to lock into extension during weight- bearing, although pt admits he is not 100% compliant with locking his brace. Pt notes his pain is overall well controlled, takes one pain pill in the AM, and then some edibles at night to help him sleep. Treatment Goals Patient/Caregiver Goals Pt's goals are to be brace- free in one month, regain quad function, and overall return to his normal functional level . PT-OP-C Subjective Start: 03/19/20 13:53 Freq: Status: Active Protocol: Document 06/02/20 07:34 SP (Rec: 06/02/20 08:38 SP [id number]) OP-PT Subjective Patient Comments Patient Comments Pt states R knee is progressing just still not as strong/stable as fast as want to prepare to return to work hopefully by end of June. Pt stated going to the gym and doing machines, kettle lentz lifts mostly and only 1 day week. Patient Reported Progress Improving PT-OP-E Functional Tests Start: 05/27/20 14:44 Freq: Status: Active Protocol: Document 05/27/20 14:30 DCW (Rec: 05/27/20 15:30 DCW [id number]) Functional Tests Star Excursion Balance Test Score Position 1: L(stance): 37.5 in , R: 29 in Position 2: L:35 in, R: 29.5 in Position 3: L:36.5 in, R: 33 in Position 4: L: 38 in, R: 36.75 in Position 5: L: 40 in, R: 37.75 in Position 6: L: 35.5 in, R: 31 in Position 7: L: 29 in, R: 23.25 in Position 8: L: 28 in, R: 27.5 in PT-OP-J Posture/Palpation/Skin Start: 03/19/20 14:08 Freq: Status: Active Protocol: Document 05/27/20 14:30 DCW (Rec: 05/27/20 14:44 DCW [id number]) Skin Assessment Circumference Measurement 3 Location 10 cm inferior to right knee joint line Measurement (Centimeters) 35.4 Comments 10 cm inferior to left knee joint line: 37.8 cm 2 Location 10 cm superior to right knee joint line Measurement (Centimeters) 42.5 Comments 10 cm superior to left knee joint line: 42.8 cm 1 Location Right knee joint line Measurement (Centimeters) 38.2 Comments Left knee joint line: 35.0 cm PT-OP-K Range of Motion Start: 03/19/20 13:53 Freq: Status: Active Protocol: Document 05/27/20 14:30 DCW (Rec: 05/27/20 14:44 DCW [id number]) Knee Goniometric Range of Motion Knee Right Patient Position Supine Flexion Active (degrees) 143 Extension Active (degrees) 0 Comments Extension lag during SLR: 0? PT-OP-M Strength Start: 03/19/20 13:53 Freq: Status: Active Protocol: Document 05/27/20 14:30 DCW (Rec: 05/27/20 14:44 DCW [id number]) Knee Strength Knee Manual Muscle Testing Right Flexion (S2) 4+ Good+ Extension (L3) 4+ Good+ PT-OP-Q Treatments Start: 03/19/20 13:53 Freq: Status: Active Protocol: Document 06/02/20 07:31 SP (Rec: 06/02/20 08:38 SP [id number]) Cardio Equipment Elliptical Duration (Minutes) 5 Resistance 6 Gym Equipment Cable Column (Body Solid) 3 way hip Details abd, add, ext (RLE stationary LLe moving) Resistance 2 Reps/Time x10 each direction, cued soft knee Leg Extension Details Double leg Resistance 40# hip flex> reverse lunge Details knee stability w/ slider retro contact slide under LLE Resistance 20 Reps/Time 2x10 alternate LE >90 deg RLE, able with no pain deeper knee flex LLE Shuttle Recovery Plyometric Hopping Details Single push off to DL land Resistance 50# Shuttle Recovery Platform Stable Reps/Time x30 Unilateral Squats Resistance 87# Shuttle Recovery Platform Stable Reps/Time incline supine 87# x30, sidelying 50# x20 Bilateral Squats Resistance 137# Shuttle Recovery Platform Unstable Reps/Time x20 Sport Cord blue Exercise Details SL step ups, eccentric step down Cord/Resistance blue Reps/Duration 2x10 B Comments 8 step> BOSU (stability pole- contact for assist PRN, mirror for alignment knee with and behind toes)- pain free Therapeutic Exercises Sitting Exercises rolling stick Sitting Exercise Name quad, HS, calf- self STMs Side right Equipment Used rolling stick Reps/Minutes 1 min Comments between walking lunge laps- assist decrease knee tension Standing Exercises hops Standing Exercise Name DL f/b/side with eccentric soft land Reps/Minutes 2x10 each direction Comments good stability- pain free lunge Standing Exercise Name walking lunges Reps/Minutes 40 ft 2 laps Comments cued R knee little more lateral alignment in front and back positioning Manual Therapy Treatment Soft Tissue Mobilization quads & hamstrings Body Location L RF/ VL: superior glide/ cross friction during eccentric knee flexion Mobilization Type Myofascial Release,Sustained Pressure,Other Intensity/Depth Deep Body Position Supine Comments MWM PT-OP-T Assessment and Plan Start: 03/19/20 13:53 Freq: Status: Active Protocol: Document 06/02/20 07:31 SP (Rec: 06/02/20 08:38 SP [id number]) Physical Therapy Assessment Goals Five Impairment Pt demonstrating post-op R quad and hamstring strength of 3/5 Manager Medical Device Goal (LTG) Pt to demonstrate 4/5 quad and hamstring strength in order to 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 05/13/20: progressing hip flex 4/5 hip abd 4+/5 knee flex 4+/5 knee ext 4/5 LTG Duration 06/16/20 Four Impairment Pt right knee ROM limited to 0 -90? Fdc Goal (LTG) Pt to demonstrate right knee ROM 0-130? pain-free in order to return to prior level of function 05/13/20: Goal met- 0-144 deg. LTG Duration Met Three Impairment Pt amb step-through gait wearing locked ext brace /c B axillary crutches Short Term Goal (STG) Goal met: ambulate no AD Fdc Goal (LTG) Pt to ambulate unassisted with no brace using a step-through gait pattern with no antalgia Goal Met LTG Duration Met Two Impairment Pt presents with circumfrential measurements L> R at joint line by 5.8 cm Fdc Goal (LTG) Circumferential measurements at knee joint line L=R LTG Duration 06/26/20 - Improving One Impairment Pt does not have an appropriate home exercise program Short Term Goal (STG) Pt to be independent and compliant with an appropriate HEP 05/19/20: progressing, strength and stability with deep knee flexion. 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 No pain with post initiated DL hops f /b/s with cuing for awareness of soft knee absorption land. Instructed give feedback how today went for assist with safe progression future treatments. Manual and self STMs responded well for decreased tightness in knee during flexion activities, quad areas stated tight during squat/ knee flexion movements . INFORMATION SECURITY ARCHITECT stated recommend standing cable 4 way leg press did in PT today at gym on own as well. Physical Therapy Plan Frequency and Duration Frequency of Treatment 2x/Week Duration of Treatment 10 weeks Plan of Care Start Date 05/27/20 Plan of Care End Date 08/05/20 Therapeutic Interventions Therapeutic Interventions Balance Training,Gait Training ,Home Exercise Program,Joint Mobilizations,Manual Therapy, Neuromuscular Re-education, Patient/Caregiver Education, Self-Care/Home Management,Soft Tissue Mobilization, Therapeutic Activities, Therapeutic Exercises Modalities Cold Pack/Ice Massage,Electric Stimulation,Hot Packs, Ultrasound Next Visit Focus/Plan Next Note Type Treatment Note Next Visit Plan Assess response to last tx: knee stabilzation ther ex, see details. Next tx, if reponded well after tx progress SL activities and initiation plyometrics within no twisting / pivoting, only precautions per physician per PT feedback from last online appt. Continue per PT POC: ROM, edema control, gentle strengthening, gait training.
--- NOTE | 2020-06-06 10:31 | PT.OTN ---
Current Diagnoses Pain in right knee (06/06/20) Stiffness of right knee, not elsewhere classified (06/06/20) Muscle weakness (generalized) (06/06/20) Other abnormalities of gait and mobility (06/06/20) Other tear of lateral meniscus, current injury, right knee, initial encounter (06/06/20) Sprain of anterior cruciate ligament of right knee, initial encounter (06/06/20) Physical Therapy Treatment Note PT-OP-A Visit Information Start: 03/19/20 13:53 Freq: Status: Active Protocol: Document 06/06/20 09:49 DCW (Rec: 06/06/20 10:30 DCW [id number]) Out-Patient Physical Therapy Visit Information Visit Information Visit Type Treatment Note Visit Start Time 09:45 Visit Stop Time 10:30 Total Visit Minutes 45 Visit Number 18 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 In the process, his left foot got caught in yaneli, resulting in him falling and landing on his right leg, which caused a right ACL and lateral meniscus tear. 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 Pt had surgical repair on 03/12/20 in [place], where he works , and the on 03/17/20, flew to [place], where he lives with his and four children. Post-op, pt has been performing ankle pumps, SLR, and glute/quad sets. Pt also is using bilateral axillary crutches and a brace, which is supposed to lock into extension during weight- bearing, although pt admits he is not 100% compliant with locking his brace. Pt notes his pain is overall well controlled, takes one pain pill in the AM, and then some edibles at night to help him sleep. Treatment Goals Patient/Caregiver Goals Pt's goals are to be brace- free in one month, regain quad function, and overall return to his normal functional level . PT-OP-C Subjective Start: 03/19/20 13:53 Freq: Status: Active Protocol: Document 06/06/20 09:49 DCW (Rec: 06/06/20 10:30 DCW [id number]) OP-PT Subjective Patient Comments Patient Comments Pt reports he just came from the gym, did 20 minutes on the elliptical, admits I know I' m not supposed to, but I've been jogging short distances, and it feels great. PT-OP-E Functional Tests Start: 05/27/20 14:44 Freq: Status: Active Protocol: Document 05/27/20 14:30 DCW (Rec: 05/27/20 15:30 DCW [id number]) Functional Tests Star Excursion Balance Test Score Position 1: L(stance): 37.5 in , R: 29 in Position 2: L:35 in, R: 29.5 in Position 3: L:36.5 in, R: 33 in Position 4: L: 38 in, R: 36.75 in Position 5: L: 40 in, R: 37.75 in Position 6: L: 35.5 in, R: 31 in Position 7: L: 29 in, R: 23.25 in Position 8: L: 28 in, R: 27.5 in PT-OP-J Posture/Palpation/Skin Start: 03/19/20 14:08 Freq: Status: Active Protocol: Document 05/27/20 14:30 DCW (Rec: 05/27/20 14:44 DCW [id number]) Skin Assessment Circumference Measurement 3 Location 10 cm inferior to right knee joint line Measurement (Centimeters) 35.4 Comments 10 cm inferior to left knee joint line: 37.8 cm 2 Location 10 cm superior to right knee joint line Measurement (Centimeters) 42.5 Comments 10 cm superior to left knee joint line: 42.8 cm 1 Location Right knee joint line Measurement (Centimeters) 38.2 Comments Left knee joint line: 35.0 cm PT-OP-K Range of Motion Start: 03/19/20 13:53 Freq: Status: Active Protocol: Document 05/27/20 14:30 DCW (Rec: 05/27/20 14:44 DCW [id number]) Knee Goniometric Range of Motion Knee Right Patient Position Supine Flexion Active (degrees) 143 Extension Active (degrees) 0 Comments Extension lag during SLR: 0? PT-OP-M Strength Start: 03/19/20 13:53 Freq: Status: Active Protocol: Document 05/27/20 14:30 DCW (Rec: 05/27/20 14:44 DCW [id number]) Knee Strength Knee Manual Muscle Testing Right Flexion (S2) 4+ Good+ Extension (L3) 4+ Good+ PT-OP-Q Treatments Start: 03/19/20 13:53 Freq: Status: Active Protocol: Document 06/06/20 09:49 DCW (Rec: 06/06/20 10:30 DCW [id number]) Gym Equipment Shuttle Recovery Plyometric Hopping Details Single push off to DL land Resistance 50# Shuttle Recovery Platform Stable Reps/Time x30 Unilateral Squats Resistance 87# Shuttle Recovery Platform Stable Reps/Time incline supine 87# x30, sidelying 50# x20 Bilateral Squats Resistance 137# Shuttle Recovery Platform Unstable Reps/Time x20 Shuttle Balance Red Details SLS, Stagger Neuro Re-Education Treatment Balance Activities 1 Details SLS Surface Dominique foam Comments Reaching outside of NAOMI for cones Coordination Activities 3 Details Cone taps 2 Details Star Stepping 1 Details Ladder Drills PT-OP-T Assessment and Plan Start: 03/19/20 13:53 Freq: Status: Active Protocol: Document 06/06/20 09:49 DCW (Rec: 06/06/20 10:30 DCW [id number]) Physical Therapy Assessment Goals Five Impairment Pt demonstrating post-op R quad and hamstring strength of 3/5 Correction Goal (LTG) Pt to demonstrate 4/5 quad and hamstring strength in order to 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 05/13/20: progressing hip flex 4/5 hip abd 4+/5 knee flex 4+/5 knee ext 4/5 LTG Duration 06/16/20 Four Impairment Pt right knee ROM limited to 0 -90? Cutter Hot Knife Goal (LTG) Pt to demonstrate right knee ROM 0-130? pain-free in order to return to prior level of function 05/13/20: Goal met- 0-144 deg. LTG Duration Met Three Impairment Pt amb step-through gait wearing locked ext brace /c B axillary crutches Short Term Goal (STG) Goal met: ambulate no AD Cutter Hot Knife Goal (LTG) Pt to ambulate unassisted with no brace using a step-through gait pattern with no antalgia Goal Met LTG Duration Met Two Impairment Pt presents with circumfrential measurements L> R at joint line by 5.8 cm Cutter Hot Knife Goal (LTG) Circumferential measurements at knee joint line L=R LTG Duration 06/26/20 - Improving One Impairment Pt does not have an appropriate home exercise program Short Term Goal (STG) Pt to be independent and compliant with an appropriate HEP 05/19/20: progressing, strength and stability with deep knee flexion. STG Duration 06/26/20 Assessment Summary Assessment Pt doing very well overall, showing great progress with activity tolerance, strength, proprioception, and mobility. Continued therapy will likely be beneficial to help continued progression post-op. Physical Therapy Plan Frequency and Duration Frequency of Treatment 2x/Week Duration of Treatment 10 weeks Plan of Care Start Date 05/27/20 Plan of Care End Date 08/05/20 Therapeutic Interventions Therapeutic Interventions Balance Training,Gait Training ,Home Exercise Program,Joint Mobilizations,Manual Therapy, Neuromuscular Re-education, Patient/Caregiver Education, Self-Care/Home Management,Soft Tissue Mobilization, Therapeutic Activities, Therapeutic Exercises Modalities Cold Pack/Ice Massage,Electric Stimulation,Hot Packs, Ultrasound Next Visit Focus/Plan Next Note Type Treatment Note Next Visit Plan Assess response to last tx: knee stabilzation ther ex, see details. Next tx, if reponded well after tx progress SL activities and initiation plyometrics within no twisting / pivoting, only precautions per physician per PT feedback from last online appt. Continue per PT POC: ROM, edema control, gentle strengthening, gait training.
--- NOTE | 2020-06-09 08:15 | PT.OTN ---
Current Diagnoses Pain in right knee (06/09/20) Stiffness of right knee, not elsewhere classified (06/09/20) Muscle weakness (generalized) (06/09/20) Other abnormalities of gait and mobility (06/09/20) Other tear of lateral meniscus, current injury, right knee, initial encounter (06/09/20) Sprain of anterior cruciate ligament of right knee, initial encounter (06/09/20) Physical Therapy Treatment Note PT-OP-A Visit Information Start: 03/19/20 13:53 Freq: Status: Active Protocol: Document 06/09/20 07:31 SP (Rec: 06/09/20 08:26 SP [id number]) Out-Patient Physical Therapy Visit Information Visit Information Visit Type Treatment Note Visit Note Has Dr lanza 06/24/20 telehealth . Visit Start Time 07:31 Visit Stop Time 08:15 Total Visit Minutes 44 Visit Number 19 Number of SOCIAL MEDIA DESIGNER Visits 1 Evaluation Information Evaluation Date 03/19/20 PT-OP-B Current Condition Start: 03/19/20 13:53 Freq: Status: Active Protocol: Document 03/19/20 10:30 DCW (Rec: 03/19/20 14:07 DCW [id number]) Current Condition History of Current Condition Onset Date 03/12/20 Current Complaints Knee pain, stiffness, weakness s/p R ACL, lateral meniscus repair History of Current Condition Pt is a 34 year old male presenting one week s/p right ACL reconstruction (patella graft) and meniscus repair. 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 In the process, his left foot got caught in yaneli, resulting in him falling and landing on his right leg, which caused a right ACL and lateral meniscus tear. 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 Pt had surgical repair on 03/12/20 in [place], where he works , and the on 03/17/20, flew to [place], where he lives with his and four children. Post-op, pt has been performing ankle pumps, SLR, and glute/quad sets. Pt also is using bilateral axillary crutches and a brace, which is supposed to lock into extension during weight- bearing, although pt admits he is not 100% compliant with locking his brace. Pt notes his pain is overall well controlled, takes one pain pill in the AM, and then some edibles at night to help him sleep. Treatment Goals Patient/Caregiver Goals Pt's goals are to be brace- free in one month, regain quad function, and overall return to his normal functional level . PT-OP-C Subjective Start: 03/19/20 13:53 Freq: Status: Active Protocol: Document 06/09/20 07:31 SP (Rec: 06/09/20 08:26 SP [id number]) OP-PT Subjective Patient Comments Patient Comments Pt stated all warmed up at gym pre PT. Pt reported worked out legs this weekend and doing well, did have a pain when standing shifted into full extension and laterally over distal HS tendon region. PT-OP-E Functional Tests Start: 05/27/20 14:44 Freq: Status: Active Protocol: Document 05/27/20 14:30 DCW (Rec: 05/27/20 15:30 DCW [id number]) Functional Tests Star Excursion Balance Test Score Position 1: L(stance): 37.5 in , R: 29 in Position 2: L:35 in, R: 29.5 in Position 3: L:36.5 in, R: 33 in Position 4: L: 38 in, R: 36.75 in Position 5: L: 40 in, R: 37.75 in Position 6: L: 35.5 in, R: 31 in Position 7: L: 29 in, R: 23.25 in Position 8: L: 28 in, R: 27.5 in PT-OP-J Posture/Palpation/Skin Start: 03/19/20 14:08 Freq: Status: Active Protocol: Document 05/27/20 14:30 DCW (Rec: 05/27/20 14:44 DCW [id number]) Skin Assessment Circumference Measurement 3 Location 10 cm inferior to right knee joint line Measurement (Centimeters) 35.4 Comments 10 cm inferior to left knee joint line: 37.8 cm 2 Location 10 cm superior to right knee joint line Measurement (Centimeters) 42.5 Comments 10 cm superior to left knee joint line: 42.8 cm 1 Location Right knee joint line Measurement (Centimeters) 38.2 Comments Left knee joint line: 35.0 cm PT-OP-K Range of Motion Start: 03/19/20 13:53 Freq: Status: Active Protocol: Document 05/27/20 14:30 DCW (Rec: 05/27/20 14:44 DCW [id number]) Knee Goniometric Range of Motion Knee Right Patient Position Supine Flexion Active (degrees) 143 Extension Active (degrees) 0 Comments Extension lag during SLR: 0? PT-OP-M Strength Start: 03/19/20 13:53 Freq: Status: Active Protocol: Document 05/27/20 14:30 DCW (Rec: 05/27/20 14:44 DCW [id number]) Knee Strength Knee Manual Muscle Testing Right Flexion (S2) 4+ Good+ Extension (L3) 4+ Good+ PT-OP-Q Treatments Start: 03/19/20 13:53 Freq: Status: Active Protocol: Document 06/09/20 07:31 SP (Rec: 06/09/20 08:26 SP [id number]) Gym Equipment Shuttle Recovery Plyometric Hopping Details Single push off to DL land Resistance 50# Shuttle Recovery Platform Stable Reps/Time x30 Unilateral Squats Details alternate LE Resistance 87# x5> 100# Shuttle Recovery Platform Stable Reps/Time 2x20 Bilateral Squats Resistance 137# Shuttle Recovery Platform Unstable Reps/Time x20 Shuttle Balance Red Details SLS, Stagger Comments SLS 1. stationary 2. star tap Stagger 1. stationary 2. balloon Sport Cord blue Exercise Details SL step ups, eccentric step down Cord/Resistance blue Reps/Duration 2x10 B Comments BOSU (mirror for alignment knee with and behind toes)- pain free Therapeutic Exercises Standing Exercises lunge Standing Exercise Name walking lunges Reps/Minutes 20 ft 2 laps Comments cued R knee little more lateral alignment in front and back positioning Manual Therapy Treatment Soft Tissue Mobilization patellar tendon Body Location R Mobilization Type Cross-Friction Intensity/Depth Moderate Body Position Supine Comments with tendon and cross friction , sustained pressure/ MFR with AAROM R knee flexion, resisted AROM patellar superior glide x5 manual then self application to decreased tension. quads & hamstrings Body Location R distal Semitend., Semimem.: cross frictio during eccentric knee flexion Mobilization Type Cross-Friction,Sustained Pressure,Other Intensity/Depth Deep Body Position Supine Comments MWM Neuro Re-Education Treatment Coordination Activities 3 Details SLS Cone taps Equipment edward foam Reps/Duration 4 on floor, hip hinge reach Comments mirror front visual for R knee alignment 2 Details Star Stepping Equipment edward foam Reps/Duration 4 x5 reps Comments mirror front visual assist R knee alignment 1 Details Ladder Drills Reps/Duration 10ft x3 laps Comments 1. 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 05/13/20: progressing hip flex 4/5 hip abd 4+/5 knee flex 4+/5 knee ext 4/5 LTG Duration 06/16/20 Four Impairment Pt right knee ROM limited to 0 -90? Stock Patch Sawyer Goal (LTG) Pt to demonstrate right knee ROM 0-130? pain-free in order to return to prior level of function 05/13/20: Goal met- 0-144 deg. LTG Duration Met Three Impairment Pt amb step-through gait wearing locked ext brace /c B axillary crutches Short Term Goal (STG) Goal met: ambulate no AD Stock Patch Sawyer Goal (LTG) Pt to ambulate unassisted with no brace using a step-through gait pattern with no antalgia Goal Met LTG Duration Met Two Impairment Pt presents with circumfrential measurements L> R at joint line by 5.8 cm Stock Patch Sawyer Goal (LTG) Circumferential measurements at knee joint line L=R LTG Duration 06/26/20 - Improving One Impairment Pt does not have an appropriate home exercise program Short Term Goal (STG) Pt to be independent and compliant with an appropriate HEP 05/19/20: progressing, strength and stability with deep knee flexion. STG Duration 06/26/20 Assessment Summary Assessment Pt responded well to SLS activities, discomfort over patellar tendon lunge with RLE in posterior position unable complete 90 deg flexion w/even wt distribution. Retro lateral ladder drill stepping seemed weak first 10 ft then improved stability in movement feels discomfort report upon arrival. Physical Therapy Plan Frequency and Duration Frequency of Treatment 2x/Week Duration of Treatment 10 weeks Plan of Care Start Date 05/27/20 Plan of Care End Date 08/05/20 Therapeutic Interventions Therapeutic Interventions Balance Training,Gait Training ,Home Exercise Program,Joint Mobilizations,Manual Therapy, Neuromuscular Re-education, Patient/Caregiver Education, Self-Care/Home Management,Soft Tissue Mobilization, Therapeutic Activities, Therapeutic Exercises Modalities Cold Pack/Ice Massage,Electric Stimulation,Hot Packs, Ultrasound Next Visit Focus/Plan Next Note Type Treatment Note Next Visit Plan Assess response to last tx: R knee stabilzation activities. Continue per PT POC: R knee ROM, stabilization, strengthenging.
--- NOTE | 2020-06-13 10:29 | PT.OTN ---
Current Diagnoses Pain in right knee (06/13/20) Stiffness of right knee, not elsewhere classified (06/13/20) Muscle weakness (generalized) (06/13/20) Other abnormalities of gait and mobility (06/13/20) Other tear of lateral meniscus, current injury, right knee, initial encounter (06/13/20) Sprain of anterior cruciate ligament of right knee, initial encounter (06/13/20) Physical Therapy Treatment Note PT-OP-A Visit Information Start: 03/19/20 13:53 Freq: Status: Active Protocol: Document 06/13/20 09:45 DCW (Rec: 06/13/20 10:28 DCW [id number]) Out-Patient Physical Therapy Visit Information Visit Information Visit Type Treatment Note Visit Start Time 09:45 Visit Stop Time 10:30 Total Visit Minutes 45 Visit Number [address] SUPERINTENDENT Visits 0 Evaluation Information Evaluation Date 03/19/20 PT-OP-B Current Condition Start: 03/19/20 13:53 Freq: Status: Active Protocol: Document 03/19/20 10:30 DCW (Rec: 03/19/20 14:07 DCW [id number]) Current Condition History of Current Condition Onset Date 03/12/20 Current Complaints Knee pain, stiffness, weakness s/p R ACL, lateral meniscus repair History of Current Condition Pt is a 34 year old male presenting one week s/p right ACL reconstruction (patella graft) and meniscus repair. 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 In the process, his left foot got caught in yaneli, resulting in him falling and landing on his right leg, which caused a right ACL and lateral meniscus tear. 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 Pt had surgical repair on 03/12/20 in [place], where he works , and the on 03/17/20, flew to [place], where he lives with his and four children. Post-op, pt has been performing ankle pumps, SLR, and glute/quad sets. Pt also is using bilateral axillary crutches and a brace, which is supposed to lock into extension during weight- bearing, although pt admits he is not 100% compliant with locking his brace. Pt notes his pain is overall well controlled, takes one pain pill in the AM, and then some edibles at night to help him sleep. Treatment Goals Patient/Caregiver Goals Pt's goals are to be brace- free in one month, regain quad function, and overall return to his normal functional level . PT-OP-C Subjective Start: 03/19/20 13:53 Freq: Status: Active Protocol: Document 06/13/20 09:45 DCW (Rec: 06/13/20 10:28 DCW [id number]) OP-PT Subjective Patient Comments Patient Comments Everything is feeling pretty good. If I had to point to one area, it is just still a little sore with any impact through the leg, but I guess that's expected. I've tried to do some burpees and some light jogging, and it bothers the knee a little bit. PT-OP-E Functional Tests Start: 05/27/20 14:44 Freq: Status: Active Protocol: Document 05/27/20 14:30 DCW (Rec: 05/27/20 15:30 DCW [id number]) Functional Tests Star Excursion Balance Test Score Position 1: L(stance): 37.5 in , R: 29 in Position 2: L:35 in, R: 29.5 in Position 3: L:36.5 in, R: 33 in Position 4: L: 38 in, R: 36.75 in Position 5: L: 40 in, R: 37.75 in Position 6: L: 35.5 in, R: 31 in Position 7: L: 29 in, R: 23.25 in Position 8: L: 28 in, R: 27.5 in PT-OP-J Posture/Palpation/Skin Start: 03/19/20 14:08 Freq: Status: Active Protocol: Document 05/27/20 14:30 DCW (Rec: 05/27/20 14:44 DCW [id number]) Skin Assessment Circumference Measurement 3 Location 10 cm inferior to right knee joint line Measurement (Centimeters) 35.4 Comments 10 cm inferior to left knee joint line: 37.8 cm 2 Location 10 cm superior to right knee joint line Measurement (Centimeters) 42.5 Comments 10 cm superior to left knee joint line: 42.8 cm 1 Location Right knee joint line Measurement (Centimeters) 38.2 Comments Left knee joint line: 35.0 cm PT-OP-K Range of Motion Start: 03/19/20 13:53 Freq: Status: Active Protocol: Document 05/27/20 14:30 DCW (Rec: 05/27/20 14:44 DCW [id number]) Knee Goniometric Range of Motion Knee Right Patient Position Supine Flexion Active (degrees) 143 Extension Active (degrees) 0 Comments Extension lag during SLR: 0? PT-OP-M Strength Start: 03/19/20 13:53 Freq: Status: Active Protocol: Document 05/27/20 14:30 DCW (Rec: 05/27/20 14:44 DCW [id number]) Knee Strength Knee Manual Muscle Testing Right Flexion (S2) 4+ Good+ Extension (L3) 4+ Good+ PT-OP-Q Treatments Start: 03/19/20 13:53 Freq: Status: Active Protocol: Document 06/13/20 09:45 DCW (Rec: 06/13/20 10:28 DCW [id number]) Gym Equipment Shuttle Recovery Plyometric Hopping Details Single push off to DL land Resistance 50# Shuttle Recovery Platform Stable Reps/Time x30 Unilateral Squats Details alternate LE Resistance 100# Shuttle Recovery Platform Stable Reps/Time 2x20 Bilateral Squats Resistance 137# Shuttle Recovery Platform Unstable Reps/Time x20 Shuttle Balance Red Details SLS, Stagger Comments SLS 1. stationary /c ball toss 2. star tap Stagger 1. vs perturbations 2. balloon Therapeutic Exercises Standing Exercises lunge Standing Exercise Name walking lunges Reps/Minutes 20 ft 2 laps Comments cued R knee little more lateral alignment in front and back positioning Manual Therapy Treatment Joint Mobilizations 1 Joint Patellofemoral mobilization Direction Inf/Sup Neuro Re-Education Treatment Coordination Activities 4 Details Hurdles Comments Lateral high-stepping 2 Details Star Stepping Equipment Dominique foam 1 Details Ladder Drills Reps/Duration 10ft x3 laps Comments 1. 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 05/13/20: progressing hip flex 4/5 hip abd 4+/5 knee flex 4+/5 knee ext 4/5 LTG Duration 06/16/20 Four Impairment Pt right knee ROM limited to 0 -90? Assisted Goal (LTG) Pt to demonstrate right knee ROM 0-130? pain-free in order to return to prior level of function 05/13/20: Goal met- 0-144 deg. LTG Duration Met Three Impairment Pt amb step-through gait wearing locked ext brace /c B axillary crutches Short Term Goal (STG) Goal met: ambulate no AD Assisted Goal (LTG) Pt to ambulate unassisted with no brace using a step-through gait pattern with no antalgia Goal Met LTG Duration Met Two Impairment Pt presents with circumfrential measurements L> R at joint line by 5.8 cm Assisted Goal (LTG) Circumferential measurements at knee joint line L=R LTG Duration 06/26/20 - Improving One Impairment Pt does not have an appropriate home exercise program Short Term Goal (STG) Pt to be independent and compliant with an appropriate HEP 05/19/20: progressing, strength and stability with deep knee flexion. STG Duration 06/26/20 Assessment Summary Assessment Less discomfort with activity today, pt feeling very good with progression of balance and strengthening exercises. Physical Therapy Plan Frequency and Duration Frequency of Treatment 2x/Week Duration of Treatment 10 weeks Plan of Care Start Date 05/27/20 Plan of Care End Date 08/05/20 Therapeutic Interventions Therapeutic Interventions Balance Training,Gait Training ,Home Exercise Program,Joint Mobilizations,Manual Therapy, Neuromuscular Re-education, Patient/Caregiver Education, Self-Care/Home Management,Soft Tissue Mobilization, Therapeutic Activities, Therapeutic Exercises Modalities Cold Pack/Ice Massage,Electric Stimulation,Hot Packs, Ultrasound Next Visit Focus/Plan Next Note Type Treatment Note Next Visit Plan Assess response to last tx: R knee stabilzation activities. Continue per PT POC: R knee ROM, stabilization, strengthenging.
--- NOTE | 2020-06-16 11:18 | PT.OTN ---
Current Diagnoses Pain in right knee (06/16/20) Stiffness of right knee, not elsewhere classified (06/16/20) Muscle weakness (generalized) (06/16/20) Other abnormalities of gait and mobility (06/16/20) Other tear of lateral meniscus, current injury, right knee, initial encounter (06/16/20) Sprain of anterior cruciate ligament of right knee, initial encounter (06/16/20) Physical Therapy Treatment Note PT-OP-A Visit Information Start: 03/19/20 13:53 Freq: Status: Active Protocol: Document 06/16/20 10:33 DCW (Rec: 06/16/20 11:17 DCW [id number]) Out-Patient Physical Therapy Visit Information Visit Information Visit Type Treatment Note Visit Start Time 10:33 Visit Stop Time 11:15 Total Visit Minutes 42 Visit Number 21 Number of BODY CORPORATE MANAGER Visits 0 Evaluation Information Evaluation Date 03/19/20 PT-OP-B Current Condition Start: 03/19/20 13:53 Freq: Status: Active Protocol: Document 03/19/20 10:30 DCW (Rec: 03/19/20 14:07 DCW [id number]) Current Condition History of Current Condition Onset Date 03/12/20 Current Complaints Knee pain, stiffness, weakness s/p R ACL, lateral meniscus repair History of Current Condition Pt is a 34 year old male presenting one week s/p right ACL reconstruction (patella graft) and meniscus repair. 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 In the process, his left foot got caught in yaneli, resulting in him falling and landing on his right leg, which caused a right ACL and lateral meniscus tear. 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 Pt had surgical repair on 03/12/20 in [place], where he works , and the on 03/17/20, flew to [place], where he lives with his and four children. Post-op, pt has been performing ankle pumps, SLR, and glute/quad sets. Pt also is using bilateral axillary crutches and a brace, which is supposed to lock into extension during weight- bearing, although pt admits he is not 100% compliant with locking his brace. Pt notes his pain is overall well controlled, takes one pain pill in the AM, and then some edibles at night to help him sleep. Treatment Goals Patient/Caregiver Goals Pt's goals are to be brace- free in one month, regain quad function, and overall return to his normal functional level . PT-OP-C Subjective Start: 03/19/20 13:53 Freq: Status: Active Protocol: Document 06/16/20 10:33 DCW (Rec: 06/16/20 11:17 DCW [id number]) OP-PT Subjective Patient Comments Patient Comments Knee is feeling pretty good, just a little muscle soreness after last time, which was good. PT-OP-E Functional Tests Start: 05/27/20 14:44 Freq: Status: Active Protocol: Document 05/27/20 14:30 DCW (Rec: 05/27/20 15:30 DCW [id number]) Functional Tests Star Excursion Balance Test Score Position 1: L(stance): 37.5 in , R: 29 in Position 2: L:35 in, R: 29.5 in Position 3: L:36.5 in, R: 33 in Position 4: L: 38 in, R: 36.75 in Position 5: L: 40 in, R: 37.75 in Position 6: L: 35.5 in, R: 31 in Position 7: L: 29 in, R: 23.25 in Position 8: L: 28 in, R: 27.5 in PT-OP-J Posture/Palpation/Skin Start: 03/19/20 14:08 Freq: Status: Active Protocol: Document 05/27/20 14:30 DCW (Rec: 05/27/20 14:44 DCW [id number]) Skin Assessment Circumference Measurement 3 Location 10 cm inferior to right knee joint line Measurement (Centimeters) 35.4 Comments 10 cm inferior to left knee joint line: 37.8 cm 2 Location 10 cm superior to right knee joint line Measurement (Centimeters) 42.5 Comments 10 cm superior to left knee joint line: 42.8 cm 1 Location Right knee joint line Measurement (Centimeters) 38.2 Comments Left knee joint line: 35.0 cm PT-OP-K Range of Motion Start: 02/03/21 13:53 Freq: Status: Active Protocol: Document 05/27/20 14:30 DCW (Rec: 05/27/20 14:44 DCW [id number]) Knee Goniometric Range of Motion Knee Right Patient Position Supine Flexion Active (degrees) 143 Extension Active (degrees) 0 Comments Extension lag during SLR: 0? PT-OP-M Strength Start: 03/19/20 13:53 Freq: Status: Active Protocol: Document 05/27/20 14:30 DCW (Rec: 05/27/20 14:44 DCW [id number]) Knee Strength Knee Manual Muscle Testing Right Flexion (S2) 4+ Good+ Extension (L3) 4+ Good+ PT-OP-Q Treatments Start: 03/19/20 13:53 Freq: Status: Active Protocol: Document 06/16/20 10:33 DCW (Rec: 06/16/20 11:17 DCW [id number]) Cardio Equipment Elliptical Duration (Minutes) 5 Resistance 10 Gym Equipment Shuttle Recovery Quadruped Details Hip Ext/Donkey kick Resistance 75# Plyometric Hopping Details Single push off to DL land Resistance 50# Shuttle Recovery Platform Stable Reps/Time x30 Shuttle Balance Red Details SLS, Stagger Comments SLS -stationary /c ball toss Stagger -vs Perturbations Lateral Stance -balloon volley Therapeutic Exercises Standing Exercises lunge Standing Exercise Name walking lunges Reps/Minutes 20 ft 2 laps Comments cued R knee little more lateral alignment in front and back positioning Manual Therapy Treatment Joint Mobilizations 1 Joint Patellofemoral mobilization Direction Inf/Sup Neuro Re-Education Treatment Balance Activities 1 Details SLS Surface Dynadisc Coordination Activities 4 Details Hurdles Comments Lateral high-stepping 2 Details Star Stepping Equipment Dominique foam 1 Details Ladder Drills Reps/Duration 10ft x3 laps Comments 1. 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 05/13/20: progressing hip flex 4/5 hip abd 4+/5 knee flex 4+/5 knee ext 4/5 LTG Duration 06/16/20 Four Impairment Pt right knee ROM limited to 0 -90? Network Architect Goal (LTG) Pt to demonstrate right knee ROM 0-130? pain-free in order to return to prior level of function 05/13/20: Goal met- 0-144 deg. LTG Duration Met Three Impairment Pt amb step-through gait wearing locked ext brace /c B axillary crutches Short Term Goal (STG) Goal met: ambulate no AD Alf Goal (LTG) Pt to ambulate unassisted with no brace using a step-through gait pattern with no antalgia Goal Met LTG Duration Met Two Impairment Pt presents with circumfrential measurements L> R at joint line by 5.8 cm Alf Goal (LTG) Circumferential measurements at knee joint line L=R LTG Duration 06/26/20 - Improving One Impairment Pt does not have an appropriate home exercise program Short Term Goal (STG) Pt to be independent and compliant with an appropriate HEP 05/19/20: progressing, strength and stability with deep knee flexion. STG Duration 06/26/20 Assessment Summary Assessment Pt continues to show great progression, no concerns about his level of function 14 weeks post-op Physical Therapy Plan Frequency and Duration Frequency of Treatment 2x/Week Duration of Treatment 10 weeks Plan of Care Start Date 05/27/20 Plan of Care End Date 08/05/20 Therapeutic Interventions Therapeutic Interventions Balance Training,Gait Training ,Home Exercise Program,Joint Mobilizations,Manual Therapy, Neuromuscular Re-education, Patient/Caregiver Education, Self-Care/Home Management,Soft Tissue Mobilization, Therapeutic Activities, Therapeutic Exercises Modalities Cold Pack/Ice Massage,Electric Stimulation,Hot Packs, Ultrasound Next Visit Focus/Plan Next Note Type Treatment Note Next Visit Plan Assess response to last tx: R knee stabilzation activities. Continue per PT POC: R knee ROM, stabilization, strengthenging.
--- NOTE | 2020-06-19 08:14 | PT.OTN ---
Current Diagnoses Pain in right knee (06/19/20) Stiffness of right knee, not elsewhere classified (06/19/20) Muscle weakness (generalized) (06/19/20) Other abnormalities of gait and mobility (06/19/20) Other tear of lateral meniscus, current injury, right knee, initial encounter (06/19/20) Sprain of anterior cruciate ligament of right knee, initial encounter (06/19/20) Physical Therapy Treatment Note PT-OP-A Visit Information Start: 03/19/20 13:53 Freq: Status: Active Protocol: Document 06/19/20 07:29 SP (Rec: 06/19/20 08:19 SP [id number]) Out-Patient Physical Therapy Visit Information Visit Information Visit Type Treatment Note Visit Start Time 07:29 Visit Stop Time 08:14 Total Visit Minutes 45 Visit Number 22 Number of TALENT ACQUISITION LEAD Visits 1 Evaluation Information Evaluation Date 03/19/20 PT-OP-B Current Condition Start: 03/19/20 13:53 Freq: Status: Active Protocol: Document 03/19/20 10:30 DCW (Rec: 03/19/20 14:07 DCW [id number]) Current Condition History of Current Condition Onset Date 03/12/20 Current Complaints Knee pain, stiffness, weakness s/p R ACL, lateral meniscus repair History of Current Condition Pt is a 34 year old male presenting one week s/p right ACL reconstruction (patella graft) and meniscus repair. 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 In the process, his left foot got caught in yaneli, resulting in him falling and landing on his right leg, which caused a right ACL and lateral meniscus tear. 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 Pt had surgical repair on 03/12/20 in [place], where he works , and the on 03/17/20, flew to [place], where he lives with his and four children. Post-op, pt has been performing ankle pumps, SLR, and glute/quad sets. Pt also is using bilateral axillary crutches and a brace, which is supposed to lock into extension during weight- bearing, although pt admits he is not 100% compliant with locking his brace. Pt notes his pain is overall well controlled, takes one pain pill in the AM, and then some edibles at night to help him sleep. Treatment Goals Patient/Caregiver Goals Pt's goals are to be brace- free in one month, regain quad function, and overall return to his normal functional level . PT-OP-C Subjective Start: 03/19/20 13:53 Freq: Status: Active Protocol: Document 06/19/20 07:29 SP (Rec: 06/19/20 08:19 SP [id number]) OP-PT Subjective Patient Comments Patient Comments I am feeling pretty good. It' s getting better getting out of the squated/lunge position. I am doing legs at gym, only doing plyometric activities in PT. PT-OP-E Functional Tests Start: 05/27/20 14:44 Freq: Status: Active Protocol: Document 05/27/20 14:30 DCW (Rec: 05/27/20 15:30 DCW [id number]) Functional Tests Star Excursion Balance Test Score Position 1: L(stance): 37.5 in , R: 29 in Position 2: L:35 in, R: 29.5 in Position 3: L:36.5 in, R: 33 in Position 4: L: 38 in, R: 36.75 in Position 5: L: 40 in, R: 37.75 in Position 6: L: 35.5 in, R: 31 in Position 7: L: 29 in, R: 23.25 in Position 8: L: 28 in, R: 27.5 in PT-OP-J Posture/Palpation/Skin Start: 03/19/20 14:08 Freq: Status: Active Protocol: Document 05/27/20 14:30 DCW (Rec: 05/27/20 14:44 DCW [id number]) Skin Assessment Circumference Measurement 3 Location 10 cm inferior to right knee joint line Measurement (Centimeters) 35.4 Comments 10 cm inferior to left knee joint line: 37.8 cm 2 Location 10 cm superior to right knee joint line Measurement (Centimeters) 42.5 Comments 10 cm superior to left knee joint line: 42.8 cm 1 Location Right knee joint line Measurement (Centimeters) 38.2 Comments Left knee joint line: 35.0 cm PT-OP-K Range of Motion Start: 03/19/20 13:53 Freq: Status: Active Protocol: Document 05/27/20 14:30 DCW (Rec: 05/27/20 14:44 DCW [id number]) Knee Goniometric Range of Motion Knee Right Patient Position Supine Flexion Active (degrees) 143 Extension Active (degrees) 0 Comments Extension lag during SLR: 0? PT-OP-M Strength Start: 03/19/20 13:53 Freq: Status: Active Protocol: Document 05/27/20 14:30 DCW (Rec: 05/27/20 14:44 DCW [id number]) Knee Strength Knee Manual Muscle Testing Right Flexion (S2) 4+ Good+ Extension (L3) 4+ Good+ PT-OP-Q Treatments Start: 03/19/20 13:53 Freq: Status: Active Protocol: Document 06/19/20 07:29 SP (Rec: 06/19/20 08:19 SP [id number]) Cardio Equipment Elliptical Duration (Minutes) 5 Resistance 10 Gym Equipment Cable Column (Body Solid) hip flex> reverse lunge Details knee stability w/ slider retro contact slide under LLE Resistance 20# Reps/Time 2x10 RLE stationary Shuttle Recovery Quadruped Details Hip Ext/Donkey kick Resistance 75# Reps/Time 2x10 Plyometric Hopping Details Single push off to DL land Resistance 50# Shuttle Recovery Platform Stable Reps/Time 2x20 Shuttle Balance Red Details SLS, Stagger Comments SLS -stationary /c ball toss Stagger -vs Perturbations Lateral Stance -balloon volley Therapeutic Exercises Standing Exercises modified pistol squat (SL squat) Standing Exercise Name alternate LE Side bilateral Resistance AROM Equipment Used raised table 21 inches Reps/Minutes 3x5 reps Comments good knee alignment lunge Standing Exercise Name walking lunges Reps/Minutes 30 ft 2 laps Comments cued R knee little more lateral alignment in front and back positioning Other Exercises stretching w/ strap Other Exercise Name HS, quad, ITB, Adductor Side bilateral Equipment Used strap Reps/Minutes 30 each Neuro Re-Education Treatment Balance Activities 1 Details SLS Surface Dynadisc Equipment mirror for alignment feedback Coordination Activities 4 Details Hurdles Speed quick pace Reps/Duration 6 hurdles, x2 laps Comments Lateral high-stepping 2 Details Star Stepping (SLS) Equipment Dominique foam Speed mirror self feedback Comments 1. toe reach tap cones 2. hip hinge reach 1 Details Ladder Drills Reps/Duration 10ft x3 laps Comments 1. 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 05/13/20: progressing hip flex 4/5 hip abd 4+/5 knee flex 4+/5 knee ext 4/5 LTG Duration 06/16/20 Four Impairment Pt right knee ROM limited to 0 -90? Half-Way Goal (LTG) Pt to demonstrate right knee ROM 0-130? pain-free in order to return to prior level of function 05/13/20: Goal met- 0-144 deg. LTG Duration Met Three Impairment Pt amb step-through gait wearing locked ext brace /c B axillary crutches Short Term Goal (STG) Goal met: ambulate no AD Half-Way Goal (LTG) Pt to ambulate unassisted with no brace using a step-through gait pattern with no antalgia Goal Met LTG Duration Met Two Impairment Pt presents with circumfrential measurements L> R at joint line by 5.8 cm Half-Way Goal (LTG) Circumferential measurements at knee joint line L=R LTG Duration 06/26/20 - Improving One Impairment Pt does not have an appropriate home exercise program Short Term Goal (STG) Pt to be independent and compliant with an appropriate HEP 05/19/20: progressing, strength and stability with deep knee flexion. STG Duration 06/26/20 Assessment Summary Assessment Pt responded well to tx, improved SLS eccentric squat to lower 20 table with good alignment form, increased L knee flexion in back position equal with RLE during walking lunges. Pt stated just tired end tx, happy with progress. Physical Therapy Plan Frequency and Duration Frequency of Treatment 2x/Week Duration of Treatment 10 weeks Plan of Care Start Date 05/27/20 Plan of Care End Date 08/05/20 Therapeutic Interventions Therapeutic Interventions Balance Training,Gait Training ,Home Exercise Program,Joint Mobilizations,Manual Therapy, Neuromuscular Re-education, Patient/Caregiver Education, Self-Care/Home Management,Soft Tissue Mobilization, Therapeutic Activities, Therapeutic Exercises Modalities Cold Pack/Ice Massage,Electric Stimulation,Hot Packs, Ultrasound Next Visit Focus/Plan Next Note Type Treatment Note Next Visit Plan Assess response to last tx: R knee stabilzation activities. Continue per PT POC: R knee ROM, stabilization, strengthenging.
--- NOTE | 2020-06-24 15:11 | PT.OTN ---
Current Diagnoses Pain in right knee (06/24/20) Stiffness of right knee, not elsewhere classified (06/24/20) Muscle weakness (generalized) (06/24/20) Other abnormalities of gait and mobility (06/24/20) Other tear of lateral meniscus, current injury, right knee, initial encounter (06/24/20) Sprain of anterior cruciate ligament of right knee, initial encounter (06/24/20) Physical Therapy Treatment Note PT-OP-A Visit Information Start: 03/19/20 13:53 Freq: Status: Active Protocol: Document 06/24/20 14:30 DCW (Rec: 06/24/20 15:11 DCW [id number]) Out-Patient Physical Therapy Visit Information Visit Information Visit Type Treatment Note Visit Note Pt arrived on time, but then was on phone with his surgeon for 15 minutes Visit Start Time 14:45 Visit Stop Time 15:15 Total Visit Minutes 30 Visit Number 23 Number of UNDERGROUND MINE SUPERINTENDENT Visits 0 Evaluation Information Evaluation Date 03/19/20 PT-OP-B Current Condition Start: 03/19/20 13:53 Freq: Status: Active Protocol: Document 03/19/20 10:30 DCW (Rec: 03/19/20 14:07 DCW [id number]) Current Condition History of Current Condition Onset Date 03/12/20 Current Complaints Knee pain, stiffness, weakness s/p R ACL, lateral meniscus repair History of Current Condition Pt is a 34 year old male presenting one week s/p right ACL reconstruction (patella graft) and meniscus repair. 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 In the process, his left foot got caught in yaneli, resulting in him falling and landing on his right leg, which caused a right ACL and lateral meniscus tear. 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 Pt had surgical repair on 03/12/20 in [place], where he works , and the on 03/17/20, flew to [place], where he lives with his and four children. Post-op, pt has been performing ankle pumps, SLR, and glute/quad sets. Pt also is using bilateral axillary crutches and a brace, which is supposed to lock into extension during weight- bearing, although pt admits he is not 100% compliant with locking his brace. Pt notes his pain is overall well controlled, takes one pain pill in the AM, and then some edibles at night to help him sleep. Treatment Goals Patient/Caregiver Goals Pt's goals are to be brace- free in one month, regain quad function, and overall return to his normal functional level . PT-OP-C Subjective Start: 03/19/20 13:53 Freq: Status: Active Protocol: Document 06/24/20 14:30 DCW (Rec: 06/24/20 15:11 DCW [id number]) OP-PT Subjective Patient Comments Patient Comments Everything feels good. My only complaint is still a little discomfort with impact, like if I try to jump or jog. PT-OP-E Functional Tests Start: 05/27/20 14:44 Freq: Status: Active Protocol: Document 05/27/20 14:30 DCW (Rec: 05/27/20 15:30 DCW [id number]) Functional Tests Star Excursion Balance Test Score Position 1: L(stance): 37.5 in , R: 29 in Position 2: L:35 in, R: 29.5 in Position 3: L:36.5 in, R: 33 in Position 4: L: 38 in, R: 36.75 in Position 5: L: 40 in, R: 37.75 in Position 6: L: 35.5 in, R: 31 in Position 7: L: 29 in, R: 23.25 in Position 8: L: 28 in, R: 27.5 in PT-OP-J Posture/Palpation/Skin Start: 03/19/20 14:08 Freq: Status: Active Protocol: Document 05/27/20 14:30 DCW (Rec: 05/27/20 14:44 DCW [id number]) Skin Assessment Circumference Measurement 3 Location 10 cm inferior to right knee joint line Measurement (Centimeters) 35.4 Comments 10 cm inferior to left knee joint line: 37.8 cm 2 Location 10 cm superior to right knee joint line Measurement (Centimeters) 42.5 Comments 10 cm superior to left knee joint line: 42.8 cm 1 Location Right knee joint line Measurement (Centimeters) 38.2 Comments Left knee joint line: 35.0 cm PT-OP-K Range of Motion Start: 03/19/20 13:53 Freq: Status: Active Protocol: Document 05/27/20 14:30 DCW (Rec: 05/27/20 14:44 DCW [id number]) Knee Goniometric Range of Motion Knee Right Patient Position Supine Flexion Active (degrees) 143 Extension Active (degrees) 0 Comments Extension lag during SLR: 0? PT-OP-M Strength Start: 03/19/20 13:53 Freq: Status: Active Protocol: Document 05/27/20 14:30 DCW (Rec: 05/27/20 14:44 DCW [id number]) Knee Strength Knee Manual Muscle Testing Right Flexion (S2) 4+ Good+ Extension (L3) 4+ Good+ PT-OP-Q Treatments Start: 03/19/20 13:53 Freq: Status: Active Protocol: Document 06/24/20 14:30 DCW (Rec: 06/24/20 15:11 DCW [id number]) Gym Equipment Shuttle Balance Red Details SLS, Stagger Comments SLS -stationary /c ball toss Stagger -vs Perturbations Lateral Stance -balloon Entrisphereley Sport Cord 1 Exercise Details Alternating BOSU step-ups Cord/Resistance Black Therapeutic Exercises Standing Exercises modified pistol squat (SL squat) Standing Exercise Name alternate LE Side bilateral Resistance AROM Equipment Used raised table 21 inches Reps/Minutes 3x5 reps Comments good knee alignment Neuro Re-Education Treatment Coordination Activities 4 Details Hurdles Speed quick pace Reps/Duration 6 hurdles, x2 laps Comments Lateral high-stepping 2 Details Star Stepping (SLS) Equipment Dynadisc Speed mirror self feedback Comments 1. toe reach tap cones 2. hip hinge reach 1 Details Ladder Drills Reps/Duration 10ft x3 laps Comments 1. In/In, Out/ out (forward/ backward) PT-OP-T Assessment and Plan Start: 03/19/20 13:53 Freq: Status: Active Protocol: Document 06/24/20 14:30 DCW (Rec: 06/24/20 15:11 DCW [id number]) Physical Therapy Assessment Assessment Summary Assessment Pt continues to progress well, will likely be traveling to [place] to see his surgeon next month, and then return to work in August. Pt planning on finishing his last scheduled PT appointment, and then discharging from PT. Physical Therapy Plan Frequency and Duration Frequency of Treatment 2x/Week Duration of Treatment 10 weeks Plan of Care Start Date 05/27/20 Plan of Care End Date 08/05/20 Therapeutic Interventions Therapeutic Interventions Balance Training,Gait Training ,Home Exercise Program,Joint Mobilizations,Manual Therapy, Neuromuscular Re-education, Patient/Caregiver Education, Self-Care/Home Management,Soft Tissue Mobilization, Therapeutic Activities, Therapeutic Exercises Modalities Cold Pack/Ice Massage,Electric Stimulation,Hot Packs, Ultrasound Next Visit Focus/Plan Next Note Type Treatment Note Next Visit Plan Assess response to last tx: R knee stabilization activities. Continue per PT POC: R knee ROM, stabilization, strengthening.
--- NOTE | 2020-07-04 09:44 | PT.OTN ---
Current Diagnoses Pain in right knee (07/04/20) Stiffness of right knee, not elsewhere classified (07/04/20) Muscle weakness (generalized) (07/04/20) Other abnormalities of gait and mobility (07/04/20) Other tear of lateral meniscus, current injury, right knee, initial encounter (07/04/20) Sprain of anterior cruciate ligament of right knee, initial encounter (07/04/20) Physical Therapy Treatment Note PT-OP-A Visit Information Start: 03/19/20 13:53 Freq: Status: Active Protocol: Document 07/04/20 09:03 DCW (Rec: 07/04/20 09:44 DCW [id number]) Out-Patient Physical Therapy Visit Information Visit Information Visit Type Treatment Note Visit Start Time 09:03 Visit Stop Time 09:45 Total Visit Minutes 42 Visit Number 24 Number of SENIOR ASSISTANT MANAGER Visits 0 Evaluation Information Evaluation Date 03/19/20 PT-OP-B Current Condition Start: 03/19/20 13:53 Freq: Status: Active Protocol: Document 03/19/20 10:30 DCW (Rec: 03/19/20 14:07 DCW [id number]) Current Condition History of Current Condition Onset Date 03/12/20 Current Complaints Knee pain, stiffness, weakness s/p R ACL, lateral meniscus repair History of Current Condition Pt is a 34 year old male presenting one week s/p right ACL reconstruction (patella graft) and meniscus repair. 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 In the process, his left foot got caught in yaneli, resulting in him falling and landing on his right leg, which caused a right ACL and lateral meniscus tear. 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 Pt had surgical repair on 03/12/20 in [place], where he works , and the on 03/17/20, flew to [place], where he lives with his and four children. Post-op, pt has been performing ankle pumps, SLR, and glute/quad sets. Pt also is using bilateral axillary crutches and a brace, which is supposed to lock into extension during weight- bearing, although pt admits he is not 100% compliant with locking his brace. Pt notes his pain is overall well controlled, takes one pain pill in the AM, and then some edibles at night to help him sleep. Treatment Goals Patient/Caregiver Goals Pt's goals are to be brace- free in one month, regain quad function, and overall return to his normal functional level . PT-OP-C Subjective Start: 03/19/20 13:53 Freq: Status: Active Protocol: Document 07/04/20 09:03 DCW (Rec: 07/04/20 09:44 DCW [id number]) OP-PT Subjective Patient Comments Patient Comments Pt still feels like he is ready to discharge from skilled PT, able to perform most activities independently. PT-OP-E Functional Tests Start: 05/27/20 14:44 Freq: Status: Active Protocol: Document 05/27/20 14:30 DCW (Rec: 05/27/20 15:30 DCW [id number]) Functional Tests Star Excursion Balance Test Score Position 1: L(stance): 37.5 in , R: 29 in Position 2: L:35 in, R: 29.5 in Position 3: L:36.5 in, R: 33 in Position 4: L: 38 in, R: 36.75 in Position 5: L: 40 in, R: 37.75 in Position 6: L: 35.5 in, R: 31 in Position 7: L: 29 in, R: 23.25 in Position 8: L: 28 in, R: 27.5 in PT-OP-J Posture/Palpation/Skin Start: 03/19/20 14:08 Freq: Status: Active Protocol: Document 05/27/20 14:30 DCW (Rec: 05/27/20 14:44 DCW [id number]) Skin Assessment Circumference Measurement 3 Location 10 cm inferior to right knee joint line Measurement (Centimeters) 35.4 Comments 10 cm inferior to left knee joint line: 37.8 cm 2 Location 10 cm superior to right knee joint line Measurement (Centimeters) 42.5 Comments 10 cm superior to left knee joint line: 42.8 cm 1 Location Right knee joint line Measurement (Centimeters) 38.2 Comments Left knee joint line: 35.0 cm PT-OP-K Range of Motion Start: 02/03/21 13:53 Freq: Status: Active Protocol: Document 05/27/20 14:30 DCW (Rec: 05/27/20 14:44 DCW [id number]) Knee Goniometric Range of Motion Knee Right Patient Position Supine Flexion Active (degrees) 143 Extension Active (degrees) 0 Comments Extension lag during SLR: 0? PT-OP-M Strength Start: 03/19/20 13:53 Freq: Status: Active Protocol: Document 05/27/20 14:30 DCW (Rec: 05/27/20 14:44 DCW [id number]) Knee Strength Knee Manual Muscle Testing Right Flexion (S2) 4+ Good+ Extension (L3) 4+ Good+ PT-OP-Q Treatments Start: 03/19/20 13:53 Freq: Status: Active Protocol: Document 07/04/20 09:03 DCW (Rec: 07/04/20 09:44 DCW [id number]) Gym Equipment Shuttle Recovery Quadruped Details Hip Ext/Donkey kick Resistance 75# Reps/Time 2x10 Plyometric Hopping Details Single push off to DL land Resistance 50# Shuttle Recovery Platform Stable Reps/Time 2x20 Shuttle Balance Red Details SLS, Stagger Comments SLS -stationary /c ball toss Stagger -vs Perturbations Lateral Stance -balloon volley Therapeutic Exercises Standing Exercises modified pistol squat (SL squat) Standing Exercise Name alternate LE Side bilateral Resistance AROM Equipment Used raised table 18 inches Reps/Minutes 3x5 reps Comments good knee alignment lunge Standing Exercise Name walking lunges Reps/Minutes 30 ft 2 laps Comments cued R knee little more lateral alignment in front and back positioning Neuro Re-Education Treatment Coordination Activities 4 Details Hurdles Speed quick pace Reps/Duration 6 hurdles, x2 laps Comments Lateral high-stepping 2 Details Star Stepping (SLS) Equipment Dynadisc Speed mirror self feedback Comments 1. toe reach tap cones 2. hip hinge reach 1 Details Ladder Drills Reps/Duration 10ft x3 laps Comments 1. 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 05/13/20: progressing hip flex 4/5 hip abd 4+/5 knee flex 4+/5 knee ext 4/5 LTG Duration Met Four Impairment Pt right knee ROM limited to 0 -90? Prison Goal (LTG) Pt to demonstrate right knee ROM 0-130? pain-free in order to return to prior level of function 05/13/20: Goal met- 0-144 deg. LTG Duration Met Three Impairment Pt amb step-through gait wearing locked ext brace /c B axillary crutches Short Term Goal (STG) Goal met: ambulate no AD Prison Goal (LTG) Pt to ambulate unassisted with no brace using a step-through gait pattern with no antalgia Goal Met LTG Duration Met Two Impairment Pt presents with circumfrential measurements L> R at joint line by 5.8 cm Prison Goal (LTG) Circumferential measurements at knee joint line L=R LTG Duration Met One Impairment Pt does not have an appropriate home exercise program Short Term Goal (STG) Pt to be independent and compliant with an appropriate HEP 05/19/20: progressing, strength and stability with deep knee flexion. STG Duration Met Assessment Summary Assessment Pt has met all goals, is progressing well toward a return to work. Pt is very compliant with his independent HEP, has been released by his surgeon for everything except rotation through his planted leg. Appropriate for discharge at this time. Physical Therapy Plan Frequency and Duration Frequency of Treatment 2x/Week Duration of Treatment 10 weeks Plan of Care Start Date 05/27/20 Plan of Care End Date 08/05/20 Therapeutic Interventions Therapeutic Interventions Balance Training,Gait Training ,Home Exercise Program,Joint Mobilizations,Manual Therapy, Neuromuscular Re-education, Patient/Caregiver Education, Self-Care/Home Management,Soft Tissue Mobilization, Therapeutic Activities, Therapeutic Exercises Modalities Cold Pack/Ice Massage,Electric Stimulation,Hot Packs, Ultrasound Discharge Physical Therapy Discharge Reasons Goals Met Next Visit Focus/Plan Next Note Type Discharge Summary
--- NOTE | 2020-07-04 09:49 | PT.OPDS ---
Current Diagnoses Pain in right knee (07/04/20) Stiffness of right knee, not elsewhere classified (07/04/20) Muscle weakness (generalized) (07/04/20) Other abnormalities of gait and mobility (07/04/20) Other tear of lateral meniscus, current injury, right knee, initial encounter (07/04/20) Sprain of anterior cruciate ligament of right knee, initial encounter (07/04/20) Visit Care Team Role Provider Type Chema Cash MD Primary Care Provider Physician Specialty: [facility] Address: [address] [place] [address] [place], [address] Email: [email or web address] Charli Gonzalez MD Attending Provider Non-Staff Referring Provider Specialty: Orthopedic Surgery Address: [address] [place] [address], [facility] Email: Visit Number Visit Number [id number] Discharge Summary PT-OP-B Current Condition Start: 03/19/20 13:53 Freq: Status: Active Protocol: Document 03/19/20 10:30 DCW (Rec: 03/19/20 14:07 DCW [id number]) Current Condition History of Current Condition Onset Date 03/12/20 Current Complaints Knee pain, stiffness, weakness s/p R ACL, lateral meniscus repair History of Current Condition Pt is a 34 year old male presenting one week s/p right ACL reconstruction (patella graft) and meniscus repair. 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 In the process, his left foot got caught in yaneli, resulting in him falling and landing on his right leg, which caused a right ACL and lateral meniscus tear. 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 Pt had surgical repair on 03/12/20 in [place], where he works , and the on 03/17/20, flew to [place], where he lives with his and four children. Post-op, pt has been performing ankle pumps, SLR, and glute/quad sets. Pt also is using bilateral axillary crutches and a brace, which is supposed to lock into extension during weight- bearing, although pt admits he is not 100% compliant with locking his brace. Pt notes his pain is overall well controlled, takes one pain pill in the AM, and then some edibles at night to help him sleep. Treatment Goals Patient/Caregiver Goals Pt's goals are to be brace- free in one month, regain quad function, and overall return to his normal functional level . PT-OP-C Subjective Start: 03/19/20 13:53 Freq: Status: Active Protocol: Document 07/04/20 09:03 DCW (Rec: 07/04/20 09:44 DCW [id number]) OP-PT Subjective Patient Comments Patient Comments Pt still feels like he is ready to discharge from skilled PT, able to perform most activities independently. PT-OP-E Functional Tests Start: 05/27/20 14:44 Freq: Status: Active Protocol: Document 05/27/20 14:30 DCW (Rec: 05/27/20 15:30 DCW [id number]) Functional Tests Star Excursion Balance Test Score Position 1: L(stance): 37.5 in , R: 29 in Position 2: L:35 in, R: 29.5 in Position 3: L:36.5 in, R: 33 in Position 4: L: 38 in, R: 36.75 in Position 5: L: 40 in, R: 37.75 in Position 6: L: 35.5 in, R: 31 in Position 7: L: 29 in, R: 23.25 in Position 8: L: 28 in, R: 27.5 in PT-OP-J Posture/Palpation/Skin Start: 03/19/20 14:08 Freq: Status: Active Protocol: Document 05/27/20 14:30 DCW (Rec: 05/27/20 14:44 DCW [id number]) Skin Assessment Circumference Measurement 3 Location 10 cm inferior to right knee joint line Measurement (Centimeters) 35.4 Comments 10 cm inferior to left knee joint line: 37.8 cm 2 Location 10 cm superior to right knee joint line Measurement (Centimeters) 42.5 Comments 10 cm superior to left knee joint line: 42.8 cm 1 Location Right knee joint line Measurement (Centimeters) 38.2 Comments Left knee joint line: 35.0 cm PT-OP-K Range of Motion Start: 03/19/20 13:53 Freq: Status: Active Protocol: Document 05/27/20 14:30 DCW (Rec: 05/27/20 14:44 DCW [id number]) Knee Goniometric Range of Motion Knee Right Patient Position Supine Flexion Active (degrees) 143 Extension Active (degrees) 0 Comments Extension lag during SLR: 0? 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 05/13/20: progressing hip flex 4/5 hip abd 4+/5 knee flex 4+/5 knee ext 4/5 LTG Duration Met Four Impairment Pt right knee ROM limited to 0 -90? Senior Living Goal (LTG) Pt to demonstrate right knee ROM 0-130? pain-free in order to return to prior level of function 05/13/20: Goal met- 0-144 deg. LTG Duration Met Three Impairment Pt amb step-through gait wearing locked ext brace /c B axillary crutches Short Term Goal (STG) Goal met: ambulate no AD Freight Flow Sales Leader Goal (LTG) Pt to ambulate unassisted with no brace using a step-through gait pattern with no antalgia Goal Met LTG Duration Met Two Impairment Pt presents with circumfrential measurements L> R at joint line by 5.8 cm Freight Flow Sales Leader Goal (LTG) Circumferential measurements at knee joint line L=R LTG Duration Met One Impairment Pt does not have an appropriate home exercise program Short Term Goal (STG) Pt to be independent and compliant with an appropriate HEP 05/19/20: progressing, strength and stability with deep knee flexion. STG Duration Met Assessment Summary Assessment Pt has met all goals, is progressing well toward a return to work. Pt is very compliant with his independent HEP, has been released by his surgeon for everything except rotation through his planted leg. Appropriate for discharge at this time. Physical Therapy Plan Frequency and Duration Frequency of Treatment 2x/Week Duration of Treatment 10 weeks Plan of Care Start Date 05/27/20 Plan of Care End Date 08/05/20 Therapeutic Interventions Therapeutic Interventions Balance Training,Gait Training ,Home Exercise Program,Joint Mobilizations,Manual Therapy, Neuromuscular Re-education, Patient/Caregiver Education, Self-Care/Home Management,Soft Tissue Mobilization, Therapeutic Activities, Therapeutic Exercises Modalities Cold Pack/Ice Massage,Electric Stimulation,Hot Packs, Ultrasound Discharge Physical Therapy Discharge Reasons Goals Met Next Visit Focus/Plan Next Note Type Discharge Summary
== END 2020-08-14 07:38 | disposition home or self-care (01) ==
LOC: PHYS 09:00
PROVIDERS: PCP Family Medicine; Referring Provider Orthopaedic Surgery; Visit Provider Orthopaedic Surgery
DX: S83.281A Other tear of lateral meniscus, current injury, right knee, initial encounter (principal); S83.511A Sprain of anterior cruciate ligament of right knee, initial encounter; M25.661 Stiffness of right knee, not elsewhere classified; M25.561 Pain in right knee; M62.81 Muscle weakness (generalized); R26.89 Other abnormalities of gait and mobility
CPT/HCPCS: 97110; 97112; 97116; 97140; 97161